=== PATIENT | male | born 1945 | race Hispanic/Latino ===

== ENCOUNTER 2017-08-30 13:03 | Emergency (ER) | payer MEDICARE ==
[~2017-08-30] VITALS: Ht 167.6 cm; Wt 79.4 kg
[~2017-08-30 13:03] MED LIST: GLUCOSAMINE &1 EAC1 PO; IBUPROFEN400 MG PO; LISINOPRIL10 MG PO; OMEPRAZOLE40 MG PO; PRAVASTATIN SOD40 MG PO
[2017-08-30] MEDS ORDERED: ACETAMINOPHEN 325 MG TAB PO ONE (13:30)
--- NOTE | 2017-08-30 14:10 | Diagnostic Imaging Report ---
Two view chest x-ray INDICATION: Fever COMPARISON: None. FINDINGS: The lateral image is motion degraded. The cardiomediastinal silhouette is normal. There is no evidence of hilar lymphadenopathy. The pulmonary vascular markings are normal. Patchy right basilar airspace opacities could be due to atelectasis or infiltrate. No pleural effusion or pneumothorax.. Evaluation of the osseous structures demonstrates degenerative changes of the spine. No focal osseous lesions. IMPRESSION: Mild bibasilar atelectasis. Small infiltrates cannot be excluded. Signed by: Dr. Ashley Rogel MD on 08/30/2017 2:07 PM
== END 2017-08-30 14:27 | disposition home or self-care (01) ==
LOC: ER 13:03
DX: J09.X2 Influenza due to identified novel influenza A virus with other respiratory manifestations (principal); I10 Essential (primary) hypertension
CPT/HCPCS: 71020; 87400; 99284

== ENCOUNTER → 2017-11-09 | Outpatient (CLI) | payer OTHER ==
--- NOTE | 2017-11-09 08:39 | Diagnostic Imaging Report ---
PROCEDURE: X-RAY CHEST, TWO VIEWS COMPARISON: None. INDICATIONS: DYSPHAGIA FINDINGS: LUNGS: No consolidations or edema. PLEURA: No effusions or pneumothorax. HEART \T\ MEDIASTINUM: The heart is within normal size-limits. BONES \T\ SOFT TISSUES: No acute findings. CONCLUSION: No acute thoracic abnormality. Gaurav Deshpande D.O. Dictated by: Gaurav Deshpande D.O. on 11/09/2017 at 8:39 Electronically approved by: Gaurav Deshpande D.O. on 11/09/2017 at 8:39
--- NOTE | 2017-11-09 09:35 | Diagnostic Imaging Report ---
PROCEDURE:X-RAY UPPER GI SERIES WITH AIR CONTRAST COMPARISON:[facility] dated 07/18/2016 INDICATIONS:GERD FINDINGS:The patient was given air crystals, thick barium, and thin barium to drink in upright and prone positions. Multiple images of the esophagus, stomach and duodenum were obtained. The esophagus is normal in appearance without evidence of dysmotility, mucosal irregularity or stricture. There is a small hiatal hernia with reflux. Focal thickened folds along the greater curvature of the stomach are noted. Review of prior study shows this to be a new finding. Endoscopy is recommended. No extrinsic abnormality. There is no evidence of ulcer. Fluoroscopy time: 2.2 minutes. Total dose: 40.55 mGy CONCLUSION: 1. Small sliding hiatal hernia with gastroesophageal reflux. 2. Interval development of thickened folds along the greater curvature of the stomach. Gaurav Deshpande D.O. Dictated by: Gaurav Deshpande D.O. on 11/09/2017 at 9:34 Electronically approved by: Gaurav Deshpande D.O. on 11/09/2017 at 9:34
== END ==
LOC: DX 07:40
PROVIDERS: ATTEND Family Medicine
DX: R13.10 Dysphagia, unspecified (principal); K21.9 Gastro-esophageal reflux disease without esophagitis
CPT/HCPCS: 71046; 74246

== ENCOUNTER 2018-04-04 09:25 | Inpatient (IN) | payer MEDICARE, OTHER ==
[~2018-04-04] VITALS: Ht 167.6 cm; Wt 84.6 kg
[2018-04-04 09:59] LABS: BASOPHILS % 0.4 % (0.0-1.0); EOSINOPHILS # (AUTO) 0.2 (0.0-0.4); EOSINOPHILS % 2.6 % (0.0-6.0); HEMATOCRIT 39.9 % (38.2-49.6); HEMOGLOBIN 13.4 g/dL (14.0-18.0); LYMPHOCYTES # (AUTO) 1.5 (1.0-3.2); LYMPHOCYTES % 21.4 % (18.0-39.1); MEAN CORPUSCULAR HEMOGLOBIN 31.2 pg (28-32); MEAN CORPUSCULAR HGB CONC 33.6 g/dL (31-35); MONOCYTES # (AUTO) 0.8 (0.2-0.8); MONOCYTES % 11.5 % (4.4-11.3); NEUTROPHILS # (AUTO) 4.4 (2.1-6.9); NEUTROPHILS % 63.7 % (38.7-80.0); PLATELET COUNT 286 x10e3/uL (140-360); RED BLOOD COUNT 4.29 x10e6/uL (4.3-5.7); RED CELL DISTRIBUTION WIDTH 13.4 % (11.7-14.4)
[2018-04-04 10:26] LABS: ALANINE AMINOTRANSFERASE 15 IU/L (0-55); ALBUMIN 3.2 g/dL (3.5-5.0); ALBUMIN/GLOBULIN RATIO 0.9 (0.8-2.0); ALKALINE PHOSPHATASE 40 IU/L (40-150); BLOOD UREA NITROGEN 17 mg/dL (7-26); BUN/CREATININE RATIO 16 (6-25); CALCIUM 9.1 mg/dL (8.4-10.2); CARBON DIOXIDE 24 mmol/L (22-29); CHLORIDE 105 mmol/L (98-107); CREATININE, SERUM 1.05 mg/dL (0.72-1.25); EST GLOMERULAR FILTRATION RATE > 60 ML/MIN (60-); GLUCOSE 98 mg/dL (74-118); SODIUM 136 mmol/L (136-145)
--- NOTE | 2018-04-04 11:03 | Diagnostic Imaging Report ---
Foot complete CPT code: 64977 Indication: Foot infection, top of foot Technique: Portable A.P., oblique and lateral views of the left foot obtained. Comparison: None Findings: Calcaneus is intact with no significant spurring. The midfoot is intact. No evidence of acute displaced fracture or dislocation involving any of the digits. There is cortical thickening of the metaphysis of the second metatarsal suggestive of remote fracture. Hallux valgus is present with the hallux valgus angle of approximately 59 degrees. No periosteal new bone formation. No air or radiopaque foreign bodies in the soft tissues. IMPRESSION: No radiographic evidence of osteomyelitis. Significant hallux valgus. Signed by: Dr. Ashley Rogel MD on 04/04/2018 11:00 AM
[2018-04-04] MEDS ORDERED: HYDROCODONE/APAP 5MG-325MG TAB PO ONE (11:15)
--- NOTE | 2018-04-04 11:39 | Diagnostic Imaging Report ---
CT Lower extremity left with contrast, with reconstructions. CPT code: 19130, 34736 Indications: Progressive swelling, top of foot. Technique: Contiguous 2.5 mm thickness axial images were obtained through the left foot after the intravenous administration of 100 cc of nonionic contrast. Rationale for reconstructions: Coronal and sagittal reconstructions were generated to better facilitate assessment of alignment and extent of fracture lines. RADIATION DOSE: Total DLP: 117.14 mGy*cm Estimated effective dose: (DLP x 0.015 x size factor) mSv CTDIvol has been reviewed. It is below the limits set by the Radiation Protocol Committee (RPC). Comparison: Foot x-rays 0947 hours. Findings: There is diffuse soft tissue swelling of the lateral aspect of the foot and ankle extending to the dorsum of the foot. No loculated fluid collections. No air in the soft tissues. The vascular structures and muscle bundles are normal in morphology. Vascular structures are widely patent. There are a few atherosclerotic calcifications in the arterial structures. Bones: Severe hallux valgus. Claw toe deformities of digits 2 through 5. Cortical thickening of the second metatarsal is suggestive of a healed stress fracture. No acute fractures. Tiny plantar calcaneal spur. There are mild degenerative changes of the subtalar joint and tibiotalar joint. IMPRESSION: 1. Diffuse soft tissue swelling of the dorsum of the foot extending to the ankle without evidence of abscess. 2. Hallux valgus. 3. Healed stress fracture of the second metatarsal. Thank you for this referral. Signed by: Dr. Ashley Rogel MD on 04/04/2018 11:36 AM
[2018-04-04] MEDS ORDERED: MORPHINE SULFATE 2 MG/ML SYR IV PRN (12:00)
[2018-04-04] MEDS ORDERED: ONDANSETRON HCL INJ 2 MG/ML VIAL IV PRN (12:00)
[2018-04-04] MEDS: VANCOMYCIN 1GM/NS 250 ML 250 ML IV SCH ×2 (13:20→20:46)
--- NOTE | 2018-04-04 15:15 | History and Physical ---
Covering for Dr. Trip Rodrigues for today, April 04, 2018. Starting tomorrow, cross-coverage will be initiated by Dr. Bal Saeed for Medicine. CHIEF COMPLAINT: Left foot pain and swelling. HISTORY OF PRESENT ILLNESS: Mr. Lemons is a 73-year-old man with a reported history of dyslipidemia, who presents to [facility] for a complaint of left foot pain onset 3 days ago, worsening gradually with erythema and swelling. He denies any other associated complaints, denies any fevers, denies trauma. He initially thought this was related to some ill shoe-fitting. However, due to worsening symptoms and exam, he decided to proceed to further evaluation in the emergency department. He denies any chest pain or shortness of breath. Denies any palpitations, syncope or other complaints. REVIEW OF SYSTEMS: A 12-system review is negative except for as noted above. ALLERGIES: NO KNOWN DRUG ALLERGIES. PAST MEDICAL HISTORY: Significant for dyslipidemia. PAST SURGICAL HISTORY: Significant for inguinal hernia repair, as well as blepharoplasty in the past. SOCIAL HISTORY: No smoking, alcohol or drugs. FAMILY HISTORY: Noncontributory. PHYSICAL EXAMINATION VITAL SIGNS: Temperature 97.4, heart rate 72, respiratory rate 20, blood pressure 153/72, O2 sat 100% on room air. GENERAL: No acute distress. Alert, active. NECK: No JVD. CHEST: Clear to auscultation. CARDIOVASCULAR: Regular rate and rhythm. Normal S1 and S2. No S3, no S4. No murmurs or rubs. ABDOMEN: Soft, nontender, nondistended. EXTREMITIES: No edema. Has 2+ bounding pulses to bilateral feet and 1+ posterior tibial bilaterally. He has erythema and swelling with an indurated area in the left anterior mid forefoot. However, no fluctuation or drainage observed. STUDIES: White blood cells 6.8, hemoglobin 13.4, platelets 286. Sodium 136, potassium 4, chloride 105, bicarbonate 24, BUN 17, creatinine 1.05, glucose 98. Lactic acid within normal value range for lab reference, 5.7. Calcium 9.1. Total bilirubin 0.8, AST 15, ALT 15, alk phos 40. Total protein 6.6, albumin 3.2. Blood cultures ordered and pending. CT lower extremity with diffuse soft-tissue swelling of dorsum of foot extending to the ankle without evidence of abscess, hallux valgus and healed stress fracture of 2nd metatarsal. Foot x-ray shows no radiographic evidence of osteomyelitis, significant hallux valgus observed. ASSESSMENT 1. Left forefoot cellulitis. 2. Dyslipidemia. RECOMMENDATIONS 1. Continue vancomycin. 2. Admit. 3. Initiate Lovenox for prophylaxis, Pepcid for prophylaxis. 4. Consult ID. 5. Wait for blood culture results. Job#: [id number] EV
[2018-04-04 17:01] VITALS: BP 130/54
[2018-04-04 17:03] VITALS: BP 130/54
[2018-04-04 17:04] VITALS: BP 130/54
[2018-04-04] MEDS: FAMOTIDINE 20 MG TAB PO SCH (17:26)
[2018-04-04] MEDS: ENOXAPARIN SOD INJ 40 MG/0.4 ML SYR SC SCH (17:26)
--- NOTE | 2018-04-04 17:38 | Consultation ---
DATE OF CONSULTATION: April 04, 2018 INFECTIOUS DISEASE CONSULTATION REASON FOR CONSULTATION: Infection of the foot. HISTORY OF PRESENT ILLNESS: The patient, who is a 73-year-old gentleman, denies any history of trauma, comes in with redness and swelling of the dorsal aspect of his foot. The patient denies any fever or chills, but the foot is painful. Denies a specific trauma. PAST MEDICAL HISTORY: Hypertension hyperlipidemia. SURGICAL HISTORY: Denies. ALLERGIES: NKA. SOCIAL HISTORY: There is no smoking, drug abuse, alcohol abuse. FAMILY HISTORY: Unremarkable. REVIEW OF SYSTEMS: HEENT: Negative. PULMONARY: Negative. CARDIAC: Negative. : Negative. SKIN: There is no rash. He had a CT of the foot, showed diffuse swelling of the dorsum of the foot extending to the ankle without abscess, healed stress fracture 2nd metatarsal. PHYSICAL EXAMINATION: GENERAL: He is currently alert, oriented, does not seem to be in acute distress. VITALS: Stable. Currently afebrile. HEENT: He does not appear icteric. NECK: Supple. CHEST: Clear. HEART: S1, S2. No S3, no S4, no murmur. ABDOMEN: Soft. Bowel sounds present. No tenderness. THE FOOT: There is erythema, edema, induration on the dorsal aspect. IMPRESSION: 1. Left foot cellulitis. Perhaps early abscess. The CAT scan does not reveal it. Will put him on vancomycin. Reassess in the morning. 2. Hypertension. Will follow. Job#: [id number] EV
[2018-04-04] MEDS: HYDROCODONE/APAP 5MG-325MG TAB PO PRN (18:15)
[2018-04-04] MEDS ORDERED: IOPAMIDOL 370 MG/ML 200 ML INFUS..BTL INJ ONE (18:38)
[2018-04-04] MEDS ORDERED: SODIUM CHLORIDE 0.9% 50ML 50 ML ONE (18:38)
[2018-04-04 20:00] VITALS: BP 148/62
[2018-04-04] MEDS ORDERED: SODIUM CHLORIDE 0.9% 250ML 250 ML ONE (20:29)
[2018-04-05] VITALS (9 sets, daily range): BP systolic 129–153; BP diastolic 66–77
[2018-04-05] MEDS: HYDROCODONE/APAP 5MG-325MG TAB PO PRN ×2 (07:32→20:44)
[2018-04-05] MEDS: FAMOTIDINE 20 MG TAB PO SCH ×2 (09:44→16:53)
[2018-04-05] MEDS: VANCOMYCIN 1GM/NS 250 ML 250 ML IV SCH ×2 (09:44→21:30)
[2018-04-05] MEDS ORDERED: MORPHINE SULFATE INJ 4 MG/ML INJ IV PRN (12:30)
[2018-04-05] MEDS: LISINOPRIL 10 MG TAB PO SCH (12:42)
[2018-04-05] MEDS: ENOXAPARIN SOD INJ 40 MG/0.4 ML SYR SC SCH (16:53)
--- NOTE | 2018-04-05 20:17 | Progress Note ---
DATE: April 05, 2018 He is still having redness and swelling of his foot. OBJECTIVE GENERAL: Alert, oriented, does not seem to be in any acute distress. VITAL SIGNS: Stable, currently afebrile. HEENT: Not icteric. NECK: Supple. CHEST: Clear bilaterally. HEART: EXTREMITIES: Foot still with erythema and edema. IMPRESSION: Cellulitis of the foot, remains. Bacteremia and gram-positive cocci. RECOMMENDATIONS: Continue with antibiotics for now and reassess in the morning. Job#: [id number]
--- NOTE | 2018-04-05 22:51 | Progress Note ---
DATE: April 05, 2018 Mr. Darrell Lemons continues to do well, however, the foot still has redness and swelling and edema. The CT scan did not show an abscess. I am concerned about the slow progress. He may need to be on IV antibiotic for a while. I will reassess in the morning this redness and induration. We may have to do IV antibiotic and a PICC line. Also, he has been having a positive blood culture with gram-positive cocci. Will await identification. Further recommendation depending on the blood culture identification. Job#: [id number]
--- NOTE | 2018-04-05 23:20 | Progress Note ---
DATE: April 05, 2018 INTERNAL MEDICINE PROGRESS NOTE This is coverage for Dr. Trip Rodrigues. SUBJECTIVE: Mr. Lemons was getting better. Left lower extremity venous ultrasound with no evidence of DVT in the left leg. 98% oxygen saturation. Room air FiO2. Blood culture was called back positive so far despite the cellulitis getting better. REVIEW OF SYSTEMS: No headaches, no bleeding. OBJECTIVE: VITAL SIGNS: Afebrile, vital signs noted per electronic record. GENERAL: In no acute distress, alert and calm. HEENT: Normocephalic, atraumatic. NECK: Supple. Throat midline. LUNGS: Bilateral air entry, clear. CARDIOVASCULAR: S1, S2. No murmurs, rubs, or gallops. ABDOMEN: Soft, nontender. EXTREMITIES: No clubbing, no cyanosis, there is no edema. INTEGUMENT: No rash. There erythematic at left dorsal aspect of foot. Much decreased from yesterday per delineating borders. LABS: Yesterday's white count was 6.8. IMPRESSION AND PLAN: 1. Left foot cellulitis, improving. 2. Gram-positive cocci septicemia. 3. Hyperlipidemia. 4. Hypertension. Follow up blood cultures. Continue the vancomycin for now. Infectious disease was consulted and we appreciate their intervention. Restart the lisinopril. Will follow along closely. Deep venous thrombosis prophylaxis is indicated and will be continued with Lovenox. Job#: [id number]
[2018-04-06] VITALS (8 sets, daily range): BP systolic 121–146; BP diastolic 62–70
[2018-04-06] MEDS: LISINOPRIL 10 MG TAB PO SCH (09:25)
[2018-04-06] MEDS: FAMOTIDINE 20 MG TAB PO SCH ×2 (09:25→16:38)
[2018-04-06] MEDS: VANCOMYCIN 1GM/NS 250 ML 250 ML IV SCH ×2 (09:25→20:30)
[2018-04-06] MEDS: CEFEPIME HCL 1 GM VIAL IV SCH (13:45)
[2018-04-06] MEDS: ENOXAPARIN SOD INJ 40 MG/0.4 ML SYR SC SCH (16:38)
--- NOTE | 2018-04-06 17:35 | Diagnostic Imaging Report ---
PROCEDURE: A single AP view of the chest. COMPARISON: [facility], DX, CHEST 2 VIEWS, 11/09/2017, 7:55. INDICATIONS: LINE PLACEMENT FINDINGS: See impression. IMPRESSION: 1. interval placement of right-sided PICC line, which has its distal tip projecting in the proximal to mid SVC. 2. Lungs are grossly clear. Cardiomediastinal silhouette is unremarkable. Darrell Gonzalez M.D. Dictated by: Darrell Gonzalez M.D. on 04/06/2018 at 17:40 Electronically approved by: Darrell Gonzalez M.D. on 04/06/2018 at 17:40
[2018-04-07] VITALS (8 sets, daily range): BP systolic 99–157; BP diastolic 71–82
[2018-04-07] MEDS: CEFEPIME HCL 1 GM VIAL IV SCH ×3 (01:16→23:52)
--- NOTE | 2018-04-07 02:00 | Progress Note ---
DATE: April 06, 2018 INTERNAL MEDICINE PROGRESS NOTE This is coverage for Dr. Trip Rodrigues. SUBJECTIVE: Mr. Lemons was seen and examined at bedside. He continues to have steady progress. Foot remains about stable. Still with a local area that is still very angry and red, but overall receding area of involvement from the severe cellulitis. REVIEW OF SYSTEMS: No bleeding, no rash. OBJECTIVE: VITAL SIGNS: Afebrile, vital signs noted per electronic record. GENERAL: No acute distress, alert and calm. HEENT: Normocephalic, atraumatic. Throat midline. NECK: Supple. LUNGS: Bilateral air entry, few rare rales, mostly clear. CARDIOVASCULAR: S1, S2. No murmurs, rubs or gallops. ABDOMEN: Soft, nontender. EXTREMITIES: No clubbing, no cyanosis. There is no edema. INTEGUMENT: No rash. No purpura. There is a very focal area on dorsal aspect of foot that is still very red and warm, but with no definite abscess arising at this time. IMPRESSION: 1. Severe cellulitis, foot. 2. Gram-positive cocci bacteremia. 3. Hyperlipidemia. 4. Hypertension. PLAN: Continue current treatment at this time. The patient will maintain on antibiotics. ID is arranging for PICC line. Outpatient antibiotic is being recommended for severe infection. Continue local care at this time. DVT prophylaxis will be ongoing given the high DVT risk that is present here. Job#: [id number] LULA
[2018-04-07 05:45] LABS: BASOPHILS % 0.6 % (0.0-1.0); EOSINOPHILS # (AUTO) 0.2 (0.0-0.4); EOSINOPHILS % 4.6 % (0.0-6.0); HEMATOCRIT 37.7 % (38.2-49.6); HEMOGLOBIN 12.7 g/dL (14.0-18.0); LYMPHOCYTES # (AUTO) 1.3 (1.0-3.2); LYMPHOCYTES % 24.1 % (18.0-39.1); MEAN CORPUSCULAR HEMOGLOBIN 30.8 pg (28-32); MEAN CORPUSCULAR HGB CONC 33.7 g/dL (31-35); MEAN CORPUSCULAR VOLUME 91.5 fL (81-99); MONOCYTES # (AUTO) 0.7 (0.2-0.8); MONOCYTES % 12.5 % (4.4-11.3); PLATELET COUNT 305 x10e3/uL (140-360); RED BLOOD COUNT 4.12 x10e6/uL (4.3-5.7); RED CELL DISTRIBUTION WIDTH 12.9 % (11.7-14.4)
[2018-04-07 06:14] LABS: BLOOD UREA NITROGEN 15 mg/dL (7-26); BUN/CREATININE RATIO 15 (6-25); CARBON DIOXIDE 26 mmol/L (22-29); CHLORIDE 105 mmol/L (98-107); CREATININE, SERUM 1.02 mg/dL (0.72-1.25); EST GLOMERULAR FILTRATION RATE > 60 ML/MIN (60-); GLUCOSE 98 mg/dL (74-118); MAGNESIUM 1.8 MG/DL (1.3-2.1); SODIUM 138 mmol/L (136-145)
[2018-04-07] MEDS: FAMOTIDINE 20 MG TAB PO SCH ×2 (08:10→16:35)
[2018-04-07] MEDS: VANCOMYCIN 1GM/NS 250 ML 250 ML IV SCH ×2 (09:13→21:30)
[2018-04-07] MEDS: LISINOPRIL 10 MG TAB PO SCH (09:14)
[2018-04-07] MEDS: ENOXAPARIN SOD INJ 40 MG/0.4 ML SYR SC SCH (16:35)
[2018-04-08] VITALS (9 sets, daily range): BP systolic 119–157; BP diastolic 62–70
--- NOTE | 2018-04-08 02:52 | Progress Note ---
DATE: April 07, 2018 INTERNAL MEDICINE PROGRESS NOTE This is coverage for Dr. Trip Rodrigues. SUBJECTIVE: Mr. Lemons was seen and examined at bedside. He continues with slow progress. The redness is continued to improve on his foot. Three voids at least spontaneously and 2 bowel movements. 99% oxygen saturation. Room air FiO2. Blood culture, no growth to date now times 24 hours. REVIEW OF SYSTEMS: No headaches, no diarrhea. OBJECTIVE: VITAL SIGNS: Afebrile, vital signs noted per electronic record. GENERAL: In no acute distress, alert and calm. HEENT: Normocephalic, atraumatic. NECK: Supple. Throat midline. LUNGS: Bilateral air entry, clear. CARDIOVASCULAR: S1, S2. No murmurs, rubs, or gallops. ABDOMEN: Soft, nontender. EXTREMITIES: No clubbing, no cyanosis, there is no edema. INTEGUMENT: No rash, no purpura. There is still the area of warmth and redness still on that left foot dorsal aspect. LABS: 4.0 potassium, 1.0 creatinine. 5 white count, 38 hematocrit. IMPRESSION AND PLAN: 1. Left foot cellulitis, improving. 2. Gram-positive cocci septicemia. 3. Hyperlipidemia. 4. Hypertension. Continue to follow blood culture and ensure negativity. Peripherally inserted central catheter line was placed successfully yesterday. Continue peripherally inserted central catheter care. Still trying to arrange for outpatient antibiotics which will include at least vancomycin. Continue to mobilize him. Continue additional blood pressure medicines. Job#: [id number]
[2018-04-08] MEDS: FAMOTIDINE 20 MG TAB PO SCH ×2 (07:45→16:40)
[2018-04-08] MEDS: VANCOMYCIN 1GM/NS 250 ML 250 ML IV SCH ×2 (08:47→21:49)
[2018-04-08] MEDS: LISINOPRIL 10 MG TAB PO SCH (08:48)
[2018-04-08] MEDS: CEFEPIME HCL 1 GM VIAL IV SCH (12:46)
[2018-04-08] MEDS: ENOXAPARIN SOD INJ 40 MG/0.4 ML SYR SC SCH (16:40)
[2018-04-09] VITALS (7 sets, daily range): BP systolic 128–155; BP diastolic 60–75
--- NOTE | 2018-04-09 00:58 | Progress Note ---
DATE: April 08, 2018 INTERNAL MEDICINE PROGRESS NOTE SUBJECTIVE: Mr. Lemons was seen and examined at bedside. He continues to have steady progress. The leg is less inflamed. 96% oxygen saturation. Room air FiO2. He is able to walk with little more steady gait. He had 2 bowel movements yesterday. REVIEW OF SYSTEMS: No diarrhea, no rash. OBJECTIVE VITAL SIGNS: Afebrile, vital signs noted per electronic record. GENERAL: In no acute distress, alert and calm. Better energy. HEENT: Normocephalic, atraumatic. Throat midline. NECK: Supple. LUNGS: Bilateral air entry, clear. CARDIOVASCULAR: S1, S2. No murmurs, rubs, or gallops. ABDOMEN: Soft, nontender. EXTREMITIES: No clubbing, no cyanosis. There is no edema. Decreasing erythematous site at left foot dorsal aspect. IMPRESSION 1. Staphylococcal bacteremia. 2. Severe left foot infection, improved. 3. Hypertension. 4. Hyperlipidemia. PLAN: Continue cefepime. Continue vancomycin. PICC line care will be continued. Will continue to await arrangement of outpatient home antibiotics. Follow up closely. DVT prophylaxis will be continued for now. Job#: [id number] LULA
[2018-04-09] MEDS: CEFEPIME HCL 1 GM VIAL IV SCH ×2 (01:24→13:00)
[2018-04-09] MEDS: FAMOTIDINE 20 MG TAB PO SCH ×2 (08:02→17:12)
[2018-04-09] MEDS: LISINOPRIL 10 MG TAB PO SCH (09:36)
[2018-04-09] MEDS: VANCOMYCIN 1GM/NS 250 ML 250 ML IV SCH ×2 (10:00→20:32)
[2018-04-09] MEDS: ENOXAPARIN SOD INJ 40 MG/0.4 ML SYR SC SCH (17:12)
--- NOTE | 2018-04-10 04:44 | Discharge Summary ---
PRIMARY DIAGNOSES 1. Left foot cellulitis. 2. Gram-positive cocci/staphylococcal septicemia. PRIMARY CARE DOCTOR: Dr. Johnathon Gutierres. HOSPITAL DOCTOR: Dr. Trip Rodrigues. HOSPITAL COURSE: Mr. Lemons was seen and examined at bedside. Significant left foot cellulitis. As he was given antibiotics while he was inpatient, cultures came back on the blood positive for staphylococcus. He improved significantly. He was allowed for PICC line placement and outpatient antibiotics and subsequently discharged when insurance authorization was approved. DIET: Low-sodium diet. FOLLOWUP: With Dr. Gutierres as well as Dr. Morgan of infectious disease. ACTIVITY AT DISCHARGE: As tolerated. MEDICATIONS AT DISCHARGE: See medication administration record for detail. IV vancomycin was being prepared. Greater than 30 minutes in direct care and coordination on day of discharge. SKYLAR NICHOLSON MD Job#: [id number]
== END 2018-04-09 22:30 | disposition home or self-care (01) | DRG 872 ==
LOC: ER 09:25 → ERHOLD 11:54 → MED/SURG3 22:49
PROVIDERS: ADMIT Internal Medicine; ATTEND Internal Medicine
PROC: 02HV33Z Insertion of Infusion Device into Superior Vena Cava, Percutaneous Approach (ICD-10-PCS; principal; 2018-04-06)
DX: A41.1 Sepsis due to other specified staphylococcus (principal); L03.116 Cellulitis of left lower limb; E78.5 Hyperlipidemia, unspecified; B95.8 Unspecified staphylococcus as the cause of diseases classified elsewhere; B96.89 Other specified bacterial agents as the cause of diseases classified elsewhere
CPT/HCPCS: 36415; 36569; 71045; 80048; 80053; 80202; 82948; 83605; 83735; 85025; 87040; 87071; 87186; 87205; 93971; 99284; J0692; J1650; J3370; J7050; Q9967

== ENCOUNTER → 2018-07-15 | Day surgery (SDC) | payer MEDICARE, OTHER ==
[~2018-07-15] MED LIST changes: +FENTANYL CITRATE/PF 100MCG/2 ML INJ ONE; +MIDAZOLAM HCL 2 MG/2 ML VIAL ONE; +PROPOFOL IV EMULSION 10 MG/ML 50 ML VIAL ONE
[2018-07-15 09:50] VITALS: BP 125/67
== END | disposition home or self-care (01) ==
LOC: OR 06:21
PROVIDERS: ATTEND Internal Medicine Gastroenterology
DX: Z12.11 Encounter for screening for malignant neoplasm of colon (principal); K57.30 Diverticulosis of large intestine without perforation or abscess without bleeding; K64.8 Other hemorrhoids; Z71.3 Dietary counseling and surveillance; I10 Essential (primary) hypertension; E66.3 Overweight; Z68.28 Body mass index [BMI] 28.0-28.9, adult
CPT/HCPCS: 93005; G0121; J2250; 45378

== ENCOUNTER → 2019-02-04 | Outpatient (CLI) | payer MEDICARE, OTHER ==
[~2019-02-04] MED LIST changes: -FENTANYL CITRATE/PF 100MCG/2 ML INJ ONE; -MIDAZOLAM HCL 2 MG/2 ML VIAL ONE; -PROPOFOL IV EMULSION 10 MG/ML 50 ML VIAL ONE
--- NOTE | 2019-02-04 11:26 | Diagnostic Imaging Report ---
Renal ultrasound. History: Polycystic kidney disease Discussion: Transverse and longitudinal images of the kidneys were obtained demonstrating normal renal sizes and echogenicities. There is no evidence of hydronephrosis, mass or renal calculus. The right kidney measures 12.8 x 5.8 x 6.0 cm and the left kidney measures 11.2 x 4.9 x 4.7 cm. Maximal cortical thickness on the right is 2.1 cm and on the left 1.5 cm. Multiple cysts are seen in both kidneys. Largest on the right noted in the medial midportion measuring 2.1 x 1.6 x 2.0 cm, peripelvic cyst measuring 2.1 x 1.5 x 1.5 cm and lateral cyst measuring 1.7 x 1.6 x 1.6 cm. There are two cysts present in the left kidney within the lower pole measuring 1.6 x 1.4 and 1.7 x 1.4 cm. The urinary bladder is unremarkable with bilateral urinary jets noted. There is no evidence of free fluid. IMPRESSION: Bilateral renal cysts. Signed by: Dr. Gaurav Deshpande DO on 02/04/2019 11:23 AM
== END ==
LOC: US 08:00
PROVIDERS: ATTEND Family Medicine
DX: Q61.3 Polycystic kidney, unspecified (principal)
CPT/HCPCS: 76770

== ENCOUNTER → 2019-04-07 | Outpatient (CLI) | payer MEDICARE, OTHER ==
--- NOTE | 2019-04-07 14:43 | Diagnostic Imaging Report ---
EXAM: Renal Ultrasound INDICATION: ^[id number] ^1321 ^CHRONIC KIDNEY DZ,STAGE III COMPARISON: Renal ultrasound of 02/04/2019 TECHNIQUE: Transverse and longitudinal images of the kidneys and bladder were obtained. FINDINGS: Right Kidney: Length: 11.6 cm Appearance: Normal echogenicity. Collecting system: No hydronephrosis Stones: None Cyst/Mass: Redemonstration of multiple right renal anechoic cysts, the largest of which measure 1.6 x 1.5 x 1.7 cm and 1.8 x 1.3 x 2.0 cm. Left Kidney: Length: 11.4 cm Appearance: Normal echogenicity. Collecting system: No hydronephrosis Stones: None Cyst/Mass: None Bladder: No mass or calculi. Prevoid estimated volume of 37.5 cc. Bilateral ureteral jets seen. Postvoid volume estimate of 9.8 cc. IMPRESSION: No renal calculi or hydronephrosis. Renal cysts as above. Signed by: Blayne Navarro MD on 04/07/2019 2:40 PM
== END ==
LOC: US 12:20
PROVIDERS: ATTEND Internal Medicine Nephrology
DX: N18.3 Chronic kidney disease, stage 3 (moderate) (principal); Q61.2 Polycystic kidney, adult type
CPT/HCPCS: 76770; 76857

== ENCOUNTER → 2019-08-17 | Outpatient (CLI) | payer MEDICARE, OTHER ==
--- NOTE | 2019-08-17 11:46 | Diagnostic Imaging Report ---
Right knee, 3 views. History: Right knee pain. Findings: The soft tissues are normal. Bone mineralization is normal. There is no evidence of fracture or dislocation. There are no lytic or sclerotic lesions. There is moderate medial joint space area and osteophytosis. Posterior patellar osteophyte is also noted. IMPRESSION: Moderate right knee DJD. Signed by: Frank Queen on 08/17/2019 11:43 AM
== END ==
LOC: RAD 11:02
PROVIDERS: ATTEND Family Medicine
DX: M25.561 Pain in right knee (principal)

== ENCOUNTER 2020-03-18 06:54 | Emergency (ER) | payer MEDICARE, OTHER ==
[~2020-03-18] VITALS: Ht 167.6 cm; Wt 84.4 kg
[2020-03-18] MEDS ORDERED: ASPIRIN 81 MG CHEW TAB PO ONE (07:45)
--- NOTE | 2020-03-18 08:05 | NUR ---
Pt reports to this RN that he has been coughing for a few days and is coughing up white/osman thick sputum. Noted wheezing inspiratory/expiratory bilaterally. Pt reports nausea and some abdominal pain. No diarrhea. Denies fever, some shaking. Pt [place] speaking only. Pt initially relayed to triage his symptoms were d/t meat stuck in chest, language barrier. 12 lead ekg performed
[2020-03-18 08:09] LABS: BASOPHILS # (AUTO) 0.1 (0.0-0.1); BASOPHILS % 0.8 % (0.0-1.0); EOSINOPHILS # (AUTO) 0.3 (0.0-0.4); EOSINOPHILS % 5.2 % (0.0-6.0); HEMATOCRIT 41.1 % (38.2-49.6); HEMOGLOBIN 13.3 g/dL (14.0-18.0); LYMPHOCYTES # (AUTO) 1.7 (1.0-3.2); LYMPHOCYTES % 29.3 % (18.0-39.1); MEAN CORPUSCULAR HEMOGLOBIN 30.6 pg (28-32); MEAN CORPUSCULAR HGB CONC 32.4 g/dL (31-35); MEAN CORPUSCULAR VOLUME 94.5 fL (81-99); MONOCYTES # (AUTO) 0.8 (0.2-0.8); MONOCYTES % 12.8 % (4.4-11.3); NEUTROPHILS # (AUTO) 3.1 (2.1-6.9); NEUTROPHILS % 51.7 % (38.7-80.0); PLATELET COUNT 299 x10e3/uL (140-360); RED BLOOD COUNT 4.35 x10e6/uL (4.3-5.7); RED CELL DISTRIBUTION WIDTH 13.2 % (11.7-14.4)
[2020-03-18 08:24] LABS: INR 0.89; PROTHROMBIN TIME 12.6 seconds (11.9-14.5)
--- NOTE | 2020-03-18 08:36 | Diagnostic Imaging Report ---
EXAMINATION: CHEST SINGLE (PORTABLE) INDICATION: ERMD ORDER COMPARISON: None FINDINGS: AP view TUBES and LINES: None. LUNGS/PLEURA: Lungs are well inflated. There is no evidence of pneumonia or pulmonary edema.. Left basilar atelectasis has slightly improved. There is no pleural effusion or pneumothorax. HEART AND MEDIASTINUM: The cardiomediastinal silhouette is unremarkable. BONES AND SOFT TISSUES: No acute osseous lesion. Soft tissues are unremarkable. UPPER ABDOMEN: No free air under the diaphragm. IMPRESSION: Left basilar atelectasis has slightly improved. Signed by: Segundo Atkins MD on 03/18/2020 8:33 AM
[2020-03-18 08:41] LABS: ALBUMIN 3.6 g/dL (3.5-5.0); ALBUMIN/GLOBULIN RATIO 1.1 (0.8-2.0); ANION GAP 10.8 mmol/L (8-16); CALCIUM 8.9 mg/dL (8.4-10.2); CREATININE, SERUM 1.35 mg/dL (0.72-1.25); POTASSIUM 4.8 mmol/L (3.5-5.1)
[2020-03-18 08:47] LABS: CREATINE KINASE MB 2.2 ng/mL (0-5.0)
--- NOTE | 2020-03-18 10:18 | Emergency Department Note ---
History of Present Illnes History of Present Illness Chief Complaint: General Medicine Complaints History of Present Illness This is a 74 year old male . Chief Complaint Comment PATIENT IN FROM HOME WITH COMPLAINTS OF EATING 2 PIECES OF GARLIC LAST NIGHT, AND NO FEELS LIKE HE HAS A PIECE STUCK IN HIS CHEST. ALSO STATES THAT IT TASTES LIKE GARLIC WHEN HE BELCHES. PATIENT APPEARS IN NO DISTRESS, RESP EVEN AND NONLABORED, O2 SATS 98% ON ROOM AIR Historian: Patient Arrival Mode: Car Onset (how long ago): day(s) (2) Location: COUGH Quality: CHEST Radiation: Denies non-radiation, Denies back, Denies neck, Denies extremity, Denies abdomen, Denies periumbilical, Denies flank, Denies proximal, Denies distal, Denies other Severity: mild Onset quality: gradual Duration (how long): day(s) (2) Progression: waxing and waning Chronicity: new Context: Denies recent illness, Denies recent surgery, Denies recent immobilization, Denies recent travel, Denies trauma/injury, Denies new medications, Denies hx of DVT/PE, Denies non-compliance w/ medications, Denies other Relieving factors: none Exacerbating factors: none Associated symptoms: Reports cough; Denies denies other symptoms, Denies confusion, Denies chest pain, Denies diaphoresis, Denies fever/chills, Denies headaches, Denies loss of appetite, Denies malaise, Denies nausea/vomiting, Denies rash, Denies seizure, Denies shortness of breath, Denies syncope, Denies weakness, Denies other (DYSPHAGIA) Treatments prior to arrival: none Past Medical/Family History Physician Review I have reviewed the patient's past medical and family history. Any updates have been documented here. Past Medical History Recent Fever: No Clinical Suspicion of Infectio: No New/Unexplained Change in Ment: No Past Medical History: Hypertension, Hyperlipedemia Other Medical History: Cholesterol Other Surgery: Rt hernia repair cataract Other Last Tetanus: Unknown Review of Systems Review of Systems Constitutional: Reports no symptoms EENTM: Reports no symptoms Cardiovascular: Reports no symptoms Respiratory: Reports as per HPI, Reports cough Gastrointestinal: Reports no symptoms Genitourinary: Reports no symptoms Musculoskeletal: Reports no symptoms Integumentary: Reports no symptoms Neurological: Reports no symptoms Psychological: Reports no symptoms Endocrine: Reports no symptoms Hematological/Lymphatic: Reports no symptoms Physical Exam Related Data Allergies: Coded Allergies: No Known Allergies (Unverified , 05/25/17) Triage Vital Signs Vital Signs Date Time Temp Pulse Resp B/P (MAP) Pulse Ox O2 Delivery O2 Flow Rate FiO2 03/18/20 07:00 97.6 76 18 163/74 98 Room Air Vital signs reviewed: Yes Physical Exam CONSTITUTIONAL Constitutional: Present well-developed, Present well-nourished HENT HENT: Present normocephalic, Present atraumatic, Present oropharynx clear/moist, Present nose normal HENT L/R: Present left ext ear normal, Present right ext ear normal EYES Eyes: Reports PERRL, Reports conjunctivae normal NECK Neck: Present ROM normal PULMONARY Pulmonary: Present effort normal, Present rhonchi CARDIOVASCULAR Cardiovascular: Present regular rhythm, Present heart sounds normal, Present capillary refill normal, Present normal rate GASTROINTESTINAL Abdominal: Present soft, Present nontender, Present bowel sounds normal GENITOURINARY Genitourinary: Present exam deferred SKIN Skin: Present warm, Present dry MUSCULOSKELETAL Musculoskeletal: Present ROM normal NEUROLOGICAL Neurological: Present alert, Present oriented x 3, Present no gross motor or sensory deficits PSYCHOLOGICAL Psychological: Present mood/affect normal, Present judgement normal Results Laboratory Result Diagram: 03/18/20 0757 03/18/20 0757 Laboratory Laboratory Tests Test 03/18/20 07:57 White Blood Count 5.93 x10e3/uL (4.8-10.8) Red Blood Count 4.35 x10e6/uL (4.3-5.7) Hemoglobin 13.3 g/dL (14.0-18.0) Hematocrit 41.1 % (38.2-49.6) Mean Corpuscular Volume 94.5 fL (81-99) Mean Corpuscular Hemoglobin 30.6 pg (28-32) Mean Corpuscular Hemoglobin Concent 32.4 g/dL (31-35) Red Cell Distribution Width 13.2 % (11.7-14.4) Platelet Count 299 x10e3/uL (140-360) Neutrophils (%) (Auto) 51.7 % (38.7-80.0) Lymphocytes (%) (Auto) 29.3 % (18.0-39.1) Monocytes (%) (Auto) 12.8 % (4.4-11.3) Eosinophils (%) (Auto) 5.2 % (0.0-6.0) Basophils (%) (Auto) 0.8 % (0.0-1.0) Neutrophils # (Auto) 3.1 (2.1-6.9) Lymphocytes # (Auto) 1.7 (1.0-3.2) Monocytes # (Auto) 0.8 (0.2-0.8) Eosinophils # (Auto) 0.3 (0.0-0.4) Basophils # (Auto) 0.1 (0.0-0.1) Absolute Immature Granulocyte (auto 0.01 x10e3/uL (0-0.1) Prothrombin Time 12.6 seconds (11.9-14.5) Prothromb Time International Ratio 0.89 Sodium Level 137 mmol/L (136-145) Potassium Level 4.8 mmol/L (3.5-5.1) Chloride Level 109 mmol/L (98-107) Carbon Dioxide Level 22 mmol/L (22-29) Anion Gap 10.8 mmol/L (8-16) Blood Urea Nitrogen 18 mg/dL (7-26) Creatinine 1.35 mg/dL (0.72-1.25) Estimat Glomerular Filtration Rate 52 ML/MIN (60-) BUN/Creatinine Ratio 13 (6-25) Glucose Level 108 mg/dL (74-118) Calcium Level 8.9 mg/dL (8.4-10.2) Total Bilirubin 0.3 mg/dL (0.2-1.2) Aspartate Amino Transf (AST/SGOT) 24 IU/L (5-34) Alanine Aminotransferase (ALT/SGPT) 24 IU/L (0-55) Alkaline Phosphatase 40 IU/L (40-150) Creatine Kinase 173 IU/L (30-200) Creatine Kinase MB 2.20 ng/mL (0-5.0) Troponin I 0.003 ng/mL (0-0.300) Total Protein 6.8 g/dL (6.5-8.1) Albumin 3.6 g/dL (3.5-5.0) Globulin 3.2 g/dL (2.3-3.5) Albumin/Globulin Ratio 1.1 (0.8-2.0) Lipase 43 U/L (8-78) Lab results reviewed: Yes Imaging Imaging results reviewed: Yes Procedures 12 Lead ECG Interpretation ECG Interpretation : ECG: ECG [address]: Interpreted by ED physician Date: Mar 18, 2020 Time: 07:42 Rhythm: sinus rhythm Rate: normal BPM: 72 QRS axis: normal Conduction: 1st degree ST segments normal: Yes Assessment & Plan Medical Decision Making MDM PNEUMONIA DYSPHAGIA Reassessment Reassessment time: 10:16 Reassessment BETTER Assessment & Plan Final Impression: (1) Acute bronchitis (2) GERD (gastroesophageal reflux disease) (3) Dysphagia Depart Disposition: HOME, SELF-CARE Last Vital Signs Date Time Temp Pulse Resp B/P (MAP) Pulse Ox O2 Delivery O2 Flow Rate FiO2 03/18/20 08:05 68 14 150/77 98 03/18/20 07:00 97.6 Room Air Home Meds Reported Medications Gluc 2KCL/Chondr/Chidi Hy/Hy Ac (GLUCOSAMINE & CHONDROITIN CAP) 1 Each Capsule, PO DAILY 10/29/16 Lisinopril (LISINOPRIL) 10 Mg Tablet, 10 MG PO DAILY, #30 TAB 10/29/16 Ibuprofen (IBUPROFEN) 400 Mg Tablet, 800 MG PO Q4H, TAB 10/29/16 Medications in the ED Aspirin 81 mg PRN ONCE PO ; Start 03/18/20 at 07:45; Stop 03/18/20 at 07:46 DOMINGA FORTUNE MD Mar 18, 2020 10:18
[2020-03-18 11:15] VITALS: BP 154/73
== END 2020-03-18 11:17 | disposition home or self-care (01) ==
LOC: ER 07:19
DX: J20.9 Acute bronchitis, unspecified (principal); R05 Cough; R13.10 Dysphagia, unspecified; K21.9 Gastro-esophageal reflux disease without esophagitis; I10 Essential (primary) hypertension; E78.5 Hyperlipidemia, unspecified
CPT/HCPCS: 36415; 71045; 80053; 82550; 82553; 83690; 84484; 85025; 85610; 93005; 99284

== ENCOUNTER 2020-06-03 13:53 | Inpatient (IN) | payer MEDICARE ==
[~2020-06-03] VITALS: Ht 170.2 cm; Wt 87.1 kg
[2020-06-03] MEDS ORDERED: SODIUM CHLORIDE 0.9% 1000ML 1,000 ML IV STA (14:08)
--- OUTSIDE RECORDS SUMMARY | 2020-06-03 14:12 | XMS REPORT | Continuity of Care Document ---
Author Author [facility] t Organization [facility] Address [address] [place] [address] Phone Unavailable Care Team Providers Care Geodesist Name Role Phone BJORN SOLOMON PCP DOMINGA FORTUNE Attphys Unavailable BJORN SOLOMON Attphys Unavailable BELA SAHU Attphys Unavailable Adriano PEÑA Attphys Unavailable Mei PINON Attphys Unavailable Adriano PEÑA Admphys Unavailable Payers Payer Name Policy Type Policy Number Effective Date Expiration Date [facility] [id number] 2020 00:00:00 [facility] [id number] 2020 00:00 :00 [facility] Problems Condition Name Condition Details Condition Category Status Onset Date Resolution Date Last Treatment Date Treating Clinician Comments Source Acute bronchitis Problem Active [facility] Gastroesophageal reflux disease Problem Active [facility] Dysphagia Problem Active [facility] Allergies, Adverse Reactions, Alerts Allergy Name Allergy Type Status Severity Reaction(s) Onset Date Inacti ve Date Treating Clinician Comments Source No Known Allergies DA Active U 2020-03-22 00:00:00 [facility] No Known Allergies DA Active U 2011-03-02 00:00:00 [facility] Social History Social Habit Start Date Stop Date Quantity Comments Source Sex Assigned At 1945 00:00:00 1945 00:00:00 Male [facility] Medications Ordered Medication Name Filled Medication Name Start Date Stop Da te Current Medication? Ordering Clinician Indication Dosage Frequency Signature (SIG) Comments Components Source Gluc 2KCL/Chondr/Chidi Hy/Hy Ac (Glucosamine & Chondroi tin Cap) 1 Each CAPSULE Gluc 2KCL/Chondr/Chidi Hy/Hy Ac (Glucosamine & Chondroitin Cap) 1 Each CAPSULE Yes Daily [facility] Ibuprofen Ibuprofen Yes 800 Every 4 Hours [facility] Lisinopril Lisinopril Yes 10 Daily [facility] Pravastatin Sodium Pravastatin Sodium 2018-07-15 00:00:00 No 40 Daily [facility] Omeprazole Omeprazole 2018-04-04 00:00:00 No 40 Jolie ly [facility] Vital Signs Vital Name Observation Time Observation Value Comments Source Body Temperature 2020-03-18 11:15:00 98.0 [degF] [facility] Weight 2020-03-18 07:00:00 186 [lb_av] [facility] BMI (Body Mass Index) 2020-03-18 07:00:00 30.0 kg/m2 [facility] Procedures This patient has no known procedures. Plan of Care Planned Activity Planned Date Details Comments Source Instructions Dysphagia [facility] Instructions Bronchitis (Acute) - Adult C [facility] Encounters Start Date/Time End Date/Time Encounter Type Admission Type Att[facility] Care Department Encounter ID Source 2020-03-18 07:19:00 2020-03-18 11:17:00 Departed Emergency Room DOMINGA FORTUNE [facility] [id number] [facility] 2019-08-17 10:02:00 2019-08-17 10:02:00 Registered Clinic 3 BJORN SOLOMON [facility] [id number] [facility] 2018-04-04 11:54:00 2018-04-09 22:30:00 Discharged Inpatient 1 KIRSTEN PEÑA [facility] [id number] [facility] 2017-11-09 07:40:00 2017-11-09 07:40:00 Registered Clinic GAIL SOLOMON, [facility] [id number] [facility] 2017-08-30 13:03:00 2017-08-30 14:27:00 Departed Emergency Room ER ROSY PINON [facility] [id number] [facility] 2017-07-02 06:58:00 2017-07-02 06:58:00 [facility] [id number] [facility] 2017-06-18 07:19:00 2017-06-18 07:19:00 Registered Clinic [facility] [id number] [facility] Results Test Description Test Time Test Comments Results Result Comments Source - CT HEAD/BRAIN W/O CONT 2020-03-22 13:46:00 N gina: DARRELL BOTELLO [facility] : 1945 Age/S: 75 / M [address] [facility] Unit #: [id number] Loc: [place] [address] Phys: Brenna Banks NP Acct: [id number] Dis Date: Status: REG ER PHONE #: [phone] Exam Date: 03/22/2020 1324 FAX #: [phone] Reason: head injury EXAMS: CPT CODE: [id number] CT HEAD/BRAIN W/O CONT 81753 HISTORY: head injury TECHNIQUE: Noncontrast 2.[address] of the head. Examination acquired within 24 hours of arrival. Automated exposure control for dose reduction. COMPARISON: None FINDINGS: Tiny focus of air in the scalp near the vertex (4/64) which may be posttraumatic given the history of head injury. Calvarium and skull base are intact. No acute hemorrhage. No intracranial mass, mass effect, or midline shift. No effacement of the sulci or zambrano-white matter interface. Diffuse cortical atrophy is present. Visualized paranasal sinuses are clear. Mastoid air cells and middle ear cavities are clear. Prior lens extraction bilaterally. IMPRESSION: Findings suggest focal injury of the scalp near the vertex of the skull but no underlying bony injury or intracranial injury. Diffuse cortical atrophy. Location: [facility] at 1346 Reported and signed by: Vijay Alejandra MD CC: Brenna Banks NP Technologist:Naveen Ho RT(R),(MR),(CT) CTDI: DLP: Trnscb Date/Time: 03/22/2020 (1346) [id number] Orig Print D/T: S: 03/22/2020 (6777) PAGE 1 Signed Report CHEST SINGLE (PORTABLE) 2020-03-18 08:31:00 [place] [address] Patient Name: DARRELL BOTELLO MR #: [id number] : 1945 Age/Sex: 74/M Req #: [id number] Adm Physician: Ordered by: DOMINGA FORTUNE MD Report #: [id number] Location: ER Room/Bed: Procedure: [id number] DX/CHEST SINGLE (PORTABLE) Exam Date: 03/18/20 Exam Time: 747 REPORT STATUS: Signed EXAMINATION: CHEST SINGLE (PORTABLE) INDICATION: ERMD ORDER COMPARISON: None FINDINGS: AP view TUBES and LINES: None. LUNGS/PLEURA: Lungs are well inflated. There is no evidence of pneumonia or pulmonary edema.. Left basilar atelectasis has slightly improved. There is no pleural effusion or pneumothorax. HEART AND MEDIASTINUM: The cardiomediastinal silhouette is unremarkable. BONES AND SOFT TISSUES: No acute osseous lesion. Soft tissues are unremarkable. UPPER ABDOMEN: No free air under the diaphragm. IMPRESSION: Left basilar atelectasis has slightly improved. Signed by: Segundo Mccoy MD on 03/18/2020 8:33 AM Dictated By: SEGUNDO MCCOY MD 2 Transcribed By: URMILA on 03/18/20832 COPY TO: DOMINGA FORTUNE MD Blood leukocytes automated count (number/volume) 2020-03-18 07:57:00 Test Item White Blood Count (test code = 6690-2) 5.93 4.8-10.8 [facility] automated count (number/volume)2020-03-18 07:57:00* Test Item Value Reference Range Interpretation Comments Red Blood Count (test code = 789-8) 4.35 4.3-5.7 [facility] hemoglobin measurement (moles/volume)2020-03-18 07:57:00* Test Item Value Reference Range Interpretation Comments Hemoglobin (test code = 33859-2) 13.3 14.0-18.0 [facility] CenterAutomated blood hematocrit (volume fraction)2020-03-18 07:57:00* Test Item Value Reference Range Interpretation Comments Hematocrit (test code = 4544-3) 41.1 38.2-49.6 [facility] CenterAutomated erythrocyte mean corpuscular ijhftm2933-44-82 07:57:00* Test Item Value Reference Range Interpretation Comments Mean Corpuscular Volume (test code = 787-2) 94.5 81-99 [facility] CenterAutomated erythrocyte mean corpuscular hemoglobin (mass per erythrocyte)2020-03-18 07:57:00* Test Item Value Reference Range Interpretation Comments Mean Corpuscular Hemoglobin (test code = 785-6) 30.6 28-32 [facility] CenterAutomated erythrocyte mean corpuscular hemoglobin concentration measurement (mass/volume)2020-03-18 07:57:00* Test Item Value Reference Range Interpretation Comments Mean Corpuscular Hemoglobin Concent (test code = 786-4) 32.4 31-35 [facility] CenterRDW XbrVb-Qad4528-62-19 07:57:00* Test Item Value Reference Range Interpretation Comments Red Cell Distribution Width (test code = 09187-8) 13.2 11.7 -14.4 [facility] CenterAutomated blood platelet count (count/volume)2020-03-18 07:57:00* Test Item Value Reference Range Interpretation Comments Platelet Count (test code = 777-3) 299 140-360 [facility] CenterAutomated blood segmented neutrophil count as percentage of total gyhwajmmto3361-69-81 07:57:00* Test Item Value Reference Range Interpretation Comments Neutrophils (%) (Auto) (test code = 82806-7) 51.7 38.7-80.0 [facility] CenterAutomated blood lymphocyte count as percentage ot total rtenrafhaa3036-56-37 07:57:00* Test Item Value Reference Range Interpretation Comments Lymphocytes (%) (Auto) (test code = 736-9) 29.3 18.0-39.1 [facility] CenterAutomated blood monocyte count as percentage of total kgkncnescc5720-96-12 07:57:00* Test Item Value Reference Range Interpretation Comments Monocytes (%) (Auto) (test code = 5905-5) 12.8 4.4-11.3 [facility] CenterAutomated blood eosinophil count as percentage of total pxvzphbnox6882-91-03 07:57:00* Test Item Value Reference Range Interpretation Comments Eosinophils (%) (Auto) (test code = 713-8) 5.2 0.0-6.0 [facility] CenterAutomated blood basophil count as percentage of total topolmntkw7927-62-57 07:57:00* Test Item Value Reference Range Interpretation Comments Basophils (%) (Auto) (test code = 706-2) 0.8 0.0-1.0 [facility] CenterFluoroscopic procedure less than one hour hiuvqeoc3170-04-14 07:57:00* Test Item Value Reference Range Interpretation Comments IM GRANULOCYTES % (test code = IM GRANULOCYTES %) 0.2 0.0- 1.0 [facility] CenterAutomated blood neutrophil count 2020-03-18 07:57:00* Test Item Value Reference Range Interpretation Comments Neutrophils # (Auto) (test code = 751-8) 3.1 2.1-6.9 [facility] CenterBlood lymphocytes count (number/volume) 2020-03-18 07:57:00* Test Item Value Reference Range Interpretation Comments Lymphocytes # (Auto) (test code = 55331-2) 1.7 1.0-3.2 [facility] CenterBlood monocytes automated count (number/volume)2020-03-18 07:57:00* Test Item Value Reference Range Interpretation Comments Monocytes # (Auto) (test code = 742-7) 0.8 0.2-0.8 [facility] CenterAutomated blood eosinophil count 2020-03-18 07:57:00* Test Item Value Reference Range Interpretation Comments Eosinophils # (Auto) (test code = 711-2) 0.3 0.0-0.4 [facility] CenterAutomated blood basophil count (count/volume)2020-03-18 07:57:00* Test Item Value Reference Range Interpretation Comments Basophils # (Auto) (test code = 704-7) 0.1 0.0-0.1 [facility] CenterFluoroscopic procedure less than one hour fnqmwseg3731-90-61 07:57:00* Test Item Value Reference Range Interpretation Comments Absolute Immature Granulocyte (auto (marcella t code = Absolute Immature Granulocyte (auto) 0.01 0-0.1 [facility] CenterProthrombin time (PT) in platelet poor plasma by coagulation zxhsv7460-01-89 07:57:00* Test Item Value Reference Range Interpretation Comments Prothrombin Time (test code = 5902-2) 12.6 11.9-14.5 [facility] CenterINR in Platelet poor plasma by Coagulation qfpnq9605-62-78 07:57:00* Test Item Value Reference Range Interpretation Comments Prothromb Time International Ratio (test code = 6301-6) 0.89 Oral Anticoagulant Therapy INR Values:1. Low Intensity Therapy 1.5 - 2.02 . Moderate Intensity Therapy 2.0 - 3.03. High Intensity Therapy(1) 2.5 - 3. 54. High Intensity Therapy(2) 3.0 - 4.05. Panic Value INR > 5.0 [facility] plasma sodium measurement (moles/volume)2020-03-18 07:57:00* Test Item Value Reference Range Interpretation Comments Sodium Level (test code = 2951-2) 137 136-145 [facility]ererum or plasma potassium measurement (moles/volume)2020-03-18 07:57:00* Test Item Value Reference Range Interpretation Comments Potassium Level (test code = 2823-3) 4.8 3.5-5.1 [facility]ererum or plasma chloride measurement (moles/volume)2020-03-18 07:57:00* Test Item Value Reference Range Interpretation Comments Chloride Level (test code = 2075-0) 109 98-107 [facility] Centererum or plasma carbon dioxide, total measurement (moles/volume)2020-03-18 07:57:00* Test Item Value Reference Range Interpretation Comments Carbon Dioxide Level (test code = 2028-9) 22 22-29 [facility]ererum or plasma anion gmk3058-50-74 07:57:00* Test Item Value Reference Range Interpretation Comments Anion Gap (test code = 36170-7) 10.8 8-16 [facility]ererum or plasma urea nitrogen measurement (mass/volume)2020-03-18 07:57:00* Test Item Value Reference Range Interpretation Comments Blood Urea Nitrogen (test code = 3094-0) 18 7-26 [facility] Centererum or plasma creatinine measurement (mass/volume)2020-03-18 07:57:00* Test Item Value Reference Range Interpretation Comments Creatinine (test code = 2160-0) 1.35 0.72-1.25 [facility]ererum or plasma urea nitrogen/creatinine mass nepcf1289-56-27 07:57:00* Test Item Value Reference Range Interpretation Comments BUN/Creatinine Ratio (test code = 3097-3) 13 6-25 [facility] CenterEstimated glomerular filtration rate (GFR) mknkiomcpimro9343-87-01 07:57:00* Test Item Value Reference Range Interpretation Comments Estimat Glomerular Filtration Rate (test code = 608700006) 52 >60 Ranges were taken from the National Kidney Disease Education Program and the Public Health Service Hospitalal Kidney Foundation literature.Reference ranges:60 or greater: Ixrfxo76-09 ( for 3 consecutive months): Chronic kidney disease 15 or less: Kidney failureUnited Memorial Medical CenterGlucose omowklahjol6627-07-68 07:57:00* Test Item Value Reference Range Interpretation Comments Glucose Level (test code = RYV2254) 108 74-118 [facility]ererum or plasma calcium measurement (mass/volume)2020-03-18 07:57:00* Test Item Value Reference Range Interpretation Comments Calcium Level (test code = 31596-9) 8.9 8.4-10.2 [facility]ererum or plasma total bilirubin measurement (mass/volume)2020-03-18 07:57:00* Test Item Value Reference Range Interpretation Comments Total Bilirubin (test code = 1975-2) 0.3 0.2-1.2 [facility] CenterFluoroscopic procedure less than one hour xujlcogu1347-48-20 07:57:00* Test Item Value Reference Range Interpretation Comments Aspartate Amino Transf (AST/SGOT) (test code = Aspartate Amino Transf (AST/SGOT)) 24 5-34 [facility] Centererum or plasma alanine aminotransferase measurement (enzymatic activity/volume)2020-03-18 07:57:00* Test Item Value Reference Range Interpretation Comments Alanine Aminotransferase (ALT/SGPT) (test code = 1742-6) 24 0-55 [facility] Centererum or plasma protein measurement (mass/volume)2020-03-18 07:57:00* Test Item Value Reference Range Interpretation Comments Total Protein (test code = 2885-2) 6.8 6.5-8.1 [facility] Centererum or plasma albumin measurement (mass/volume)2020-03-18 07:57:00* Test Item Value Reference Range Interpretation Comments Albumin (test code = 1751-7) 3.6 3.5-5.0 [facility] CenterPlasma globulin measurement (mass/volume) 2020-03-18 07:57:00* Test Item Value Reference Range Interpretation Comments Globulin (test code = 20668-7) 3.2 2.3-3.5 [facility] Centererum or plasma albumin/globulin mass tdphg2458-57-46 07:57:00* Test Item Value Reference Range Interpretation Comments Albumin/Globulin Ratio (test code = 1759-0) 1.1 0.8-2.0 [facility] Centererum or plasma alkaline phosphatase measurement (enzymatic activity/volume)2020-03-18 07:57:00* Test Item Value Reference Range Interpretation Comments Alkaline Phosphatase (test code = 6768-6) 40 40-150 [facility] Centererum or plasma creatine kinase measurement (enzymatic activity/volume)2020-03-18 07:57:00* Test Item Value Reference Range Interpretation Comments Creatine Kinase (test code = 2157-6) 173 30-200 [facility] Centererum or plasma creatine kinase MB measurement (mass/volume)2020-03-18 07:57:00* Test Item Value Reference Range Interpretation Comments Creatine Kinase MB (test code = 68181-0) 2.20 0-5.0 [facility] CenterTroponin I measurement by highly sensitive enzyme eghymnzhquc7186-80-01 07:57:00* Test Item Value Reference Range Interpretation Comments Troponin I (test code = 54349-5) 0.003 0-0.300 [facility] Centererum or plasma lipase measurement (enzymatic activity/volume)2020-03-18 07:57:00* Test Item Value Reference Range Interpretation Comments Lipase (test code = 3040-3) 43 8-78 [facility] CenterKNEE RIGHT THREE MMMNL7899-69-29 11:42:00 [facility] [address] [place] [address] Patient Name: DARRELL BOTELLO MR #: [id number] : 1944 Age/Sex: 74/M Req #: [id number] Adm Physician: Ordered by: JUANITO DEE, BJORN Espinal MD Report #: [id number] Location: RAD Room/Bed: Procedure: [id number] DX/KNEE RIGHT THREE VIEWS Exam Date: 08/17/19 E xam Time: 1110 REPORT STATUS: Meaghan d Right knee, 3 views. History: Right knee pain. Findings: Th e soft tissues are normal. Bone mineralization is normal. There is no evidence of fracture or dislocation. There are no lytic or sclerotic lesions. There is moderate medial joint space area and osteophytosis. Posterior patellar osteop hyte is also noted. IMPRESSION: Moderate right knee DJD. Signed b y: Frank Queen on 08/17/2019 11:43 AM Dictated By: FRANK QUEEN MD El ectronically Signed By: FRANK QUEEN MD on 08/17/19 1143 Transcribed By: TC WREN on 08/17/19 1143 COPY TO: BJORN SOLOMON PELVIC (NON OB) SIEGEL OR F/U2606-14-31 14:36:00 [place] [address] Patient Name: DARRELL BOTELLO MR #: [id number] : 1945 Age/Sex: 74/M Req #: [id number] Adm Physician: Ordered by: BELA SAHU MD Report #: [id number] Location: Room/Bed: Procedure: [id number] US/U S PELVIC (NON OB) SIEGEL OR F/U Exam Date: 04/07/19 Exa m Time: 1321 REPORT STATUS: Signed EXAM: Renal Ultrasound INDICATION: [id number] CHRONIC K ROBEL NIX,STAGE III COMPARISON: Renal ultrasound of 02/04/2019 TECHNIQUE: Tr ansverse and longitudinal images of the kidneys and bladder were obtained. FINDINGS: Right Kidney: Length: 11.6 cm Appearance: Normal ec hogenicity. Collecting system: No hydronephrosis Stones: None Cyst/Mass: Redemonstration of multiple right renal anechoic cysts, the largest of which measure 1.6 x 1.5 x 1.7 cm and 1.8 x 1.3 x 2.0 cm. Left Kidney: Length: 11.4 cm Appearance: Normal echogenicity. Collecting system: No hydronephro sis Stones: None Cyst/Mass: None Bladder: No mass or calculi. Prevoi d estimated volume of 37.5 cc. Bilateral ureteral jets seen. Postvoid volume e stimate of 9.8 cc. IMPRESSION: No renal calculi or hydronephrosis. Renal cysts as above. Signed by: Doroteo Cole MD on 04/07/2019 2:40 PM Dicta rose By: DOROTEO COLE MD 1440 Transcribed By: URMILA on 04/07/19 1440 COPY TO: BELA SAHU MD RENAL RETROPERITONEAL [id number] 14:36:00 [place] [address] Patient Name: DARRELL BOTELLO MR #: [id number] : 1945 Age/Sex: 74/M Req #: [id number] Adm Physician: Ordered by: BELA SAHU MD Report #: [id number] Location: Room/Bed: Procedure: [id number] US/U S RENAL RETROPERITONEAL COMP Exam Date: 04/07/19 Debbie diana Time: 1321 REPORT STATUS: Signed EXAM: Renal Ultrasound INDICATION: [id number] CHRONIC K IDNEY DZ,STAGE III COMPARISON: Renal ultrasound of 02/04/2019 TECHNIQUE: Tr ansverse and longitudinal images of the kidneys and bladder were obtained. FINDINGS: Right Kidney: Length: 11.6 cm Appearance: Normal ec hogenicity. Collecting system: No hydronephrosis Stones: None Cyst/Mass: Redemonstration of multiple right renal anechoic cysts, the largest of which measure 1.6 x 1.5 x 1.7 cm and 1.8 x 1.3 x 2.0 cm. Left Kidney: Length: 11.4 cm Appearance: Normal echogenicity. Collecting system: No hydronephro sis Stones: None Cyst/Mass: None Bladder: No mass or calculi. Prevoi d estimated volume of 37.5 cc. Bilateral ureteral jets seen. Postvoid volume e stimate of 9.8 cc. IMPRESSION: No renal calculi or hydronephrosis. Renal cysts as above. Signed by: Doroteo Cole MD on 04/07/2019 2:40 PM Dicta rose By: DOROTEO COLE MD 144 Transcribed By: URMILA on 04/07/19 1440 COPY TO: BELA SAHU MD RENAL RETROPERITONEAL [id number] 11:19:00 [place] [address] Patient Name: DARRELL BOTELLO MR #: [id number] : 1945 Age/Sex: 73/M Req #: [id number] Adm Physician: Ordered by: JUANITO DEE, BJORN Espinal MD Report #: [id number] Location: US Room/Bed: Procedure: [id number] US/US RENAL RETROPERITONEAL COMP Exam Date: 02/04/19 Exam Time: 0853 REPORT STATUS : Signed Renal ultrasound. History: Polycystic kidney disease Discu ssion: Transverse and longitudinal images of the kidneys were obtained demonst rating normal renal sizes and echogenicities. There is no evidence of hydronep hrosis, mass or renal calculus. The right kidney measures 12.8 x 5.8 x 6.0 cm and the left kidney measures 11.2 x 4.9 x 4.7 cm. Maximal cortical thickne ss on the right is 2.1 cm and on the left 1.5 cm. Multiple cysts are see n in both kidneys. Largest on the right noted in the medial midportion measuri ng 2.1 x 1.6 x 2.0 cm, peripelvic cyst measuring 2.1 x 1.5 x 1.5 cm and latera l cyst measuring 1.7 x 1.6 x 1.6 cm. There are two cysts present in the left k idney within the lower pole measuring 1.6 x 1.4 and 1.7 x 1.4 cm. The uri nary bladder is unremarkable with bilateral urinary jets noted. There is no ev idence of free fluid. IMPRESSION: Bilateral renal cysts. Signed by: Dr. Gaurav Arguelles DO on 02/04/2019 11:23 AM Dictated By: GAURAV ARGUELLES DO 1123 Transcribed By : URMILA on 02/04/19 1123 COPY TO: BJORN SOLOMON Vancomycin Level Redmis0815-62-16 09:41:00* Test Item Value Reference Range Interpretation Comments Vancomycin Level Trough (test code = 4092-3) 15.3 5.0-10.0 HH Results called to Yong Segal RN at 0940 on 04/09/18 by Kimmy Tavares. RB [place].[facility] CenterBlood Yhmtbrk7225-14-64 12:17:00* Test Item Value Reference Range Interpretation Comments Blood Culture (test code = 600-7) Organism: STAPHYLOCOCCUS EPIDERMI DIS [facility] CenterBedside Migwlxm1459-37-66 12:01:00* Test Item Value Reference Range Interpretation Comments Bedside Glucose (test code = 34450-7) 216 70-120 H Meter ID: [id number][facility] Medical Center Planoodium Level 2018-04-07 06:14:00* Test Item Value Reference Range Interpretation Comments Sodium Level (test code = 2951-2) 138 136-145 [facility] CenterPotassium Frvcg7100-01-18 06:14:00* Test Item Value Reference Range Interpretation Comments Potassium Level (test code = 2823-3) 4.0 3.5-5.1 [facility] CenterChloride Qvsnt3102-18-43 06:14:00* Test Item Value Reference Range Interpretation Comments Chloride Level (test code = 2075-0) 105 98-107 [facility] CenterCarbon Dioxide Pqftu3127-59-09 06:14:00* Test Item Value Reference Range Interpretation Comments Carbon Dioxide Level (test code = 2028-9) 26 22-29 [facility] CenterAnion Cun0367-87-45 06:14:00* Test Item Value Reference Range Interpretation Comments Anion Gap (test code = 11312-9) 11.0 8-16 [facility] CenterBlood Urea Idxskfda3678-68-55 06:14:00* Test Item Value Reference Range Interpretation Comments Blood Urea Nitrogen (test code = 3094-0) 15 7-26 [facility] CenterCreatinine2018-08-08 06:14:00* Test Item Value Reference Range Interpretation Comments Creatinine (test code = 2160-0) 1.02 0.72-1.25 [facility] CenterBUN/Creatinine Ndkch2249-29-77 06:14:00* Test Item Value Reference Range Interpretation Comments BUN/Creatinine Ratio (test code = 3097-3) 15 6-25 [facility] CenterEstimat Glomerular Filtration Rate 2018-04-07 06:14:00* Test Item Value Reference Range Interpretation Comments Estimat Glomerular Filtration Rate (test code = 58434-6) 60- >60 Ranges were taken from the National Kidney Disease Education Program and the [facility] [employer] literature.Reference ranges:60 or greater: Deixvk87-23 ( for 3 consecutive months): Chronic kidney disease 15 or less: Kidney failureUnited [facility] CenterGlucose Zbaec3371-87-43 06:14:00* Test Item Value Reference Range Interpretation Comments Glucose Level (test code = THJ0669) 98 74-118 [facility] CenterCalcium Sqjex8491-38-64 06:14:00* Test Item Value Reference Range Interpretation Comments Calcium Level (test code = 65585-9) 9.0 8.4-10.2 [facility] CenterMagnesium Bhcoe3363-18-15 06:14:00* Test Item Value Reference Range Interpretation Comments Magnesium Level (test code = 67836-3) 1.8 1.3-2.1 [facility] CenterWhite Blood Ihtqz8629-00-77 06:05:00* Test Item Value Reference Range Interpretation Comments White Blood Count (test code = 6690-2) 5.22 4.8-10.8 [facility] CenterRed Blood Kzmbg8983-73-96 06:05:00* Test Item Value Reference Range Interpretation Comments Red Blood Count (test code = 789-8) 4.12 4.3-5.7 L [facility] CenterHemoglobin2018-08-08 06:05:00* Test Item Value Reference Range Interpretation Comments Hemoglobin (test code = 87037-2) 12.7 14.0-18.0 L [facility] CenterHematocrit2018-08-08 06:05:00* Test Item Value Reference Range Interpretation Comments Hematocrit (test code = 4544-3) 37.7 38.2-49.6 L [facility] CenterMean Corpuscular Raoctk7011-11-80 06:05:00* Test Item Value Reference Range Interpretation Comments Mean Corpuscular Volume (test code = 787-2) 91.5 81-99 [facility] CenterMean Corpuscular Puyzcdbynl4796-79-42 06:05:00* Test Item Value Reference Range Interpretation Comments Mean Corpuscular Hemoglobin (test code = 785-6) 30.8 28-32 [facility] CenterMean Corpuscular Hemoglobin Concent 2018-04-07 06:05:00* Test Item Value Reference Range Interpretation Comments Mean Corpuscular Hemoglobin Concent (test code = 786-4) 33.7 31-35 [facility] CenterRed Cell Distribution Rquti6360-03-22 06:05:00* Test Item Value Reference Range Interpretation Comments Red Cell Distribution Width (test code = 39912-0) 12.9 11.7 -14.4 [facility] CenterPlatelet Iirdq4691-34-34 06:05:00* Test Item Value Reference Range Interpretation Comments Platelet Count (test code = 777-3) 305 140-360 [facility] CenterNeutrophils (%) (Auto)2018-04-07 06:05:00 * Test Item Value Reference Range Interpretation Comments Neutrophils (%) (Auto) (test code = 97680-5) 58.0 38.7-80.0 [facility] CenterLymphocytes (%) (Auto)2018-04-07 06:05:00 * Test Item Value Reference Range Interpretation Comments Lymphocytes (%) (Auto) (test code = 736-9) 24.1 18.0-39.1 [facility] CenterMonocytes (%) (Auto)2018-04-07 06:05:00* Test Item Value Reference Range Interpretation Comments Monocytes (%) (Auto) (test code = 5905-5) 12.5 4.4-11.3 H [facility] CenterEosinophils (%) (Auto)2018-04-07 06:05:00 * Test Item Value Reference Range Interpretation Comments Eosinophils (%) (Auto) (test code = 713-8) 4.6 0.0-6.0 [facility] CenterBasophils (%) (Auto)2018-04-07 06:05:00* Test Item Value Reference Range Interpretation Comments Basophils (%) (Auto) (test code = 706-2) 0.6 0.0-1.0 [facility] CenterIM GRANULOCYTES %2018-04-07 06:05:00* Test Item Value Reference Range Interpretation Comments IM GRANULOCYTES % (test code = IM GRANULOCYTES %) 0.2 0.0- 1.0 [facility] CenterNeutrophils # (Auto)2018-04-07 06:05:00* Test Item Value Reference Range Interpretation Comments Neutrophils # (Auto) (test code = 751-8) 3.0 2.1-6.9 [facility] CenterLymphocytes # (Auto)2018-04-07 06:05:00* Test Item Value Reference Range Interpretation Comments Lymphocytes # (Auto) (test code = 27915-7) 1.3 1.0-3.2 [facility] CenterMonocytes # (Auto)2018-04-07 06:05:00* Test Item Value Reference Range Interpretation Comments Monocytes # (Auto) (test code = 742-7) 0.7 0.2-0.8 [facility] CenterEosinophils # (Auto)2018-04-07 06:05:00* Test Item Value Reference Range Interpretation Comments Eosinophils # (Auto) (test code = 711-2) 0.2 0.0-0.4 [facility] CenterBasophils # (Auto)2018-04-07 06:05:00* Test Item Value Reference Range Interpretation Comments Basophils # (Auto) (test code = 704-7) 0.0 0.0-0.1 [facility] CenterAbsolute Immature Granulocyte (auto 2018-04-07 06:05:00* Test Item Value Reference Range Interpretation Comments Absolute Immature Granulocyte (auto (marcella t code = Absolute Immature Granulocyte (auto) 0.01 0-0.1 [facility] CenterCHEST XRAY LINE YOXJMCIBP0341-13-24 17:40:00 [place] [address] Patient Name: DARRELL BOTELLO MR #: [id number] : 1945 Age/Sex: 73/M Req #: [id number] Adm Physician: KIRSTEN PEÑA MD Ordered by: SEGUNDO LEMUS Report #: [id number] Location: MED/SURG3 Room/Bed: [facility] Procedure: 64 DX/CHEST XRAY LINE PLACEMENT Exam Date: Exam Jamal e: REPORT STATUS: Signed PROCEDURE: A single AP view of the chest. COMPARISON: [facility], , CHEST 2 VIEWS, 11/09/2017, 7:55. INDICATIONS: LINE PLACEMENT FINDINGS: See impression. IM PRESSION: 1. interval placement of right-sided PICC line, which has its d istal tip projecting in the proximal to mid SVC. 2. Lungs are grossly clear . Cardiomediastinal silhouette is unremarkable. Darrell Paez M.D. Dictated by: Darrell Paez M.D. on 04/06/2018 at 17:40 Isa ctronically approved by: Darrell Paez M.D. on 04/06/2018 at 17:40 Dictated By: DARRELL PAEZ MD 39 Transcribed By: JANES on 04/06/181739 COPY TO: SEGUNDO LEMUS Blood Hhpppar7885-30-01 19:57:00* Test Item Value Reference Range Interpretation Comments Blood Culture (test code = 34182747) Growth detected. Culture wo rkup ordered. [facility] CenterCT FOOT LEFT [id number] 11:29:00 [place] [address] Patient Name: DARRELL BOTELLO MR #: [id number] : 1945 Age/Sex: 73/M Req #: [id number] [facility] Physician: Ordered by: MEGA WALTER MD Report #: [id number] Location: ER om/Bed: Procedure: CT/CT FOOT LEFT W Exam Date: 04/04/18 Exam Time: 1000 REPORT STATUS: S igned CT Lower extremity left with contrast, with reconstructions. CPT c ode: 79952, 75825 Indications: Progressive swelling, top of foot. Tech nique: Contiguous 2.5 mm thickness axial images were obtained through the left foot after the intravenous administration of 100 cc of nonionic contrast. Rationale for reconstructions: Coronal and sagittal reconstructions were gener ated to better facilitate assessment of alignment and extent of fracture lines . RADIATION DOSE: Total DLP: 117.14 mGy*cm Estimated effectiv e dose: (DLP x 0.015 x size factor) mSv CTDIvol has been reviewed. It is below the limits set by the Radiation Protocol Committee (RPC). Comparis on: Foot x-rays 0947 hours. Findings: There is diffuse soft tissue swelling of the lateral aspect of the foot and ankle extending to the dorsum of the fo ot. No loculated fluid collections. No air in the soft tissues. The vascu lar structures and muscle bundles are normal in morphology. Vascular structure s are widely patent. There are a few atherosclerotic calcifications in the art erial structures. Bones: Severe hallux valgus. Claw toe deformities of digi ts 2 through 5. Cortical thickening of the second metatarsal is suggestive of a healed stress fracture. No acute fractures. Tiny plantar calcaneal spur. The re are mild degenerative changes of the subtalar joint and tibiotalar joint. IMPRESSION: 1. Diffuse soft tissue swelling of the dorsum of the foot extending to the ankle without evidence of abscess. 2. Hallux valgus. 3. H ealed stress fracture of the second metatarsal. Thank you for this referral . Signed by: Dr. Dean Seo MD on 04/04/2018 11:36 AM Dictated By: DEAN SEO MD 1136 COPY TO: MEGA WALTER MD FOOT LEFT [id number] 10:54:00 [place] [address] Patient Name: DARRELL BOTELLO MR #: [id number] : 1945 Age/Sex: 73/M Req #: [id number] Adm Physician: Ordered by: MEGA WALTER MD Report #: [id number] Location: ER Room/Bed: Procedure: [id number] DX/FOOT LEFT COMPLETE E xa Date: 04/04/18 Exam Time: 0940 REPORT STATU S: Signed Foot complete CPT code: 35880 Indication: Foot infection, top of foot Technique: Portable A.P., oblique and lateral views of the lef t foot obtained. Comparison: None Findings: Calcaneus is intact w ith no significant spurring. The midfoot is intact. No evidence of acute dis placed fracture or dislocation involving any of the digits. There is cortical thickening of the metaphysis of the second metatarsal suggestive of remote fra cture. Hallux valgus is present with the hallux valgus angle of approximat loren 59 degrees. No periosteal new bone formation. No air or radiopaque foreig n bodies in the soft tissues. IMPRESSION: No radiographic evidence of osteomyelitis. Significant hallux valgus. Signed by: Dr. Dean salas MD on 04/04/2018 11:00 AM Dictated By: DEAN SEO MD Electron ically Signed By: DEAN SEO MD on 04/04/18 1100 Transcribed By: URMILA on 04/04/18 1100 COPY TO: MEGA WALTER MD Total Bilirubin 2018-04-04 10:27:00* Test Item Value Reference Range Interpretation Comments Total Bilirubin (test code = 1975-2) 0.8 0.2-1.2 [facility] CenterAspartate Amino Transf (AST/SGOT) 2018-04-04 10:27:00* Test Item Value Reference Range Interpretation Comments Aspartate Amino Transf (AST/SGOT) (test code = Aspartate Amino Transf (AST/SGOT)) 15 5-34 [facility] CenterAlanine Aminotransferase (ALT/SGPT) 2018-04-04 10:27:00* Test Item Value Reference Range Interpretation Comments Alanine Aminotransferase (ALT/SGPT) (test code = 1742-6) 15 0-55 [facility] CenterTotal Qcgtojg8561-95-61 10:27:00* Test Item Value Reference Range Interpretation Comments Total Protein (test code = 2885-2) 6.6 6.5-8.1 [facility] CenterAlbumin2018-08-05 10:27:00* Test Item Value Reference Range Interpretation Comments Albumin (test code = 1751-7) 3.2 3.5-5.0 L [facility] CenterGlobulin2018-08-05 10:27:00* Test Item Value Reference Range Interpretation Comments Globulin (test code = 46919-2) 3.4 2.3-3.5 [facility] CenterAlbumin/Globulin Rqzeh0411-60-56 10:27:00 * Test Item Value Reference Range Interpretation Comments Albumin/Globulin Ratio (test code = 1759-0) 0.9 0.8-2.0 [facility] CenterAlkaline Tzxbpemevfu8839-96-20 10:27:00* Test Item Value Reference Range Interpretation Comments Alkaline Phosphatase (test code = 6768-6) 40 40-150 [facility] CenterLactic Acid Vkjot9834-44-95 10:22:00* Test Item Value Reference Range Interpretation Comments Lactic Acid Level (test code = Lactic Acid Level) 5.7 4.5- 19.8 [facility] CenterInfluenza Virus Types A,B Antigen 2017-08-30 14:08:00* Test Item Value Reference Range Interpretation Comments Influenza Virus Types A,B Antigen (test code = 46195-1) POSITIVE FLU A NEGATIVE H Results called to TRISTA ALVARES at 1406 on 08/30/17 by EYAD TOMLINSON. RB [place].Re aundrea LEFT MSG TO [facility] in infection control at 1406 on 08/30/17 by EYAD TOMLINSON.[facility] CenterCHEST 2 VIEWS [facility] [address] [place] [address] Patient Name: DARRELL BOTELLO MR #: [id number] : 1945 Age/Sex: 72/M Req #: [id number] Adm Physician: Ordered by: JUANITO DEE, BJORN Espinal MD Report #: [id number] Location: DX Room/Bed: Procedure: [id number] DX/CHEST 2 VIEWS Exam Date: 11/09/17 Exam Time: 0800 REPORT STATUS: Signed PROCEDURE: X-RAY CHEST, TWO VIEWS COMPARISON: None. INDICATIONS: D YSPHAGIA FINDINGS: LUNGS: No consolidations or edema. PLE URA: No effusions or pneumothorax. HEART T MEDIASTINUM: The heart is within normal size-limits. BONES T SOFT TISSUES: No acute findings. CONCLUSION: No acute thoracic abnormality. Gaurav shultz D.O. Dictated by: Gaurav Arguelles D.O. on 11/09/2017 at 8:39 El ectronically approved by: Gaurav Arguelles D.O. on 11/09/2017 at 8:39 Dictated By: GAURAV ARGUELLES DO 8 Transcribed By: JANES on 11/09/17838 COPY TO: BJORN STORY UPPER GI W/AIR CONTR [place] [address] Patient Name: DARRELL BOTELLO MR #: [id number] : 1945 Age/Sex: 72/M Req #: [id number] [facility] Physician: Ordered by: JUANITO DEE, BJORN Espinal MD Report #: [id number] Location: DX Room/Bed: Procedure: [id number] DX/UPPER GI W/AIR CONT R Exam Date: 11/09/17 Exam Time: 0800 REPORT S TATUS: Signed PROCEDURE: X-RAY UPPER GI SERIES WITH AIR CONTRAST COMP ARISON: UGI dated 07/18/2016 INDICATIONS: GERD FINDINGS: The p atient was given air crystals, thick barium, and thin barium to drink in upri ght and prone positions. Multiple images of the esophagus, stomach and duode num were obtained. The esophagus is normal in appearance without evidence of dysmotility, mucosal irregularity or stricture. There is a small hiatal he rnia with reflux. Focal thickened folds along the greater curvature of the stomach are noted. Review of prior study shows this to be a new finding. En doscopy is recommended. No extrinsic abnormality. There is no evidence of ulc er. Fluoroscopy time: 2.2 minutes. Total dose: 40.55 mGy CONC LUSION: 1. Small sliding hiatal hernia with gastroesophageal reflux. 2. I nterval development of thickened folds along the greater curvature of the sto mach. Gaurav Arguelles D.O. Dictated by: Gaurav Arguelles D.O. on 07/2018 at 9:34 Electronically approved by: Gaurav Arguelles D.O. on 2017 at 9:34 Dictated By: GAURAV ARGUELLES DO Electronically Si gned By: GAURAV ARGUELLES DO on 11/09/17933 Transcribed By: JANES on 11/09/17 COPY TO: BJORN SOLOMON CHEST 2 VIEWS [place] [address] Patient Name: DARRELL BOTELLO MR #: [id number] : 1945 Age/Sex: 72/M Req #: [id number] Adm Physician: Ordered by: ORSY PINON MD Report #: [id number] Location: ER Room/Bed: Procedure: [id number] DX/CHEST 2 VIEWS Exam Date: 08/30/17 Exam Time: 1321 REPORT STATUS: Signed Two view chest x-ray INDICATION: Fever COMPARISON: None. FIN DINGS: The lateral image is motion degraded. The cardiomediastinal silho uette is normal. There is no evidence of hilar lymphadenopathy. The pul monary vascular markings are normal. Patchy right basilar airspace opacities c ould be due to atelectasis or infiltrate. No pleural effusion or pneumotho rax.. Evaluation of the osseous structures demonstrates degenerative rodriguez es of the spine. No focal osseous lesions. IMPRESSION: Mild bibasila r atelectasis. Small infiltrates cannot be excluded. Signed by: Dr. Angelo Seo MD on 08/30/2017 2:07 PM Dictated By: DEAN SEO MD E lectronically Signed By: DEAN SEO MD on 08/30/171406 Transcribed By: URMILA on 08/30/171406 COPY TO: ROSY PINON MD MRI SPINE LUMBAR WO [place] [address] Patient Name: DARRELL BOTELLO MR #: [id number] : 1945 Age/Sex: 72/M Req #: [id number] Adm Physician: Ordered by: JUANITO DEE, BJORN Espinal MD Report #: [id number] Location: MRI Room/Bed: Procedure: [id number] MRI/MRI SPINE LUMBAR WO Exam Date: 07/02/17 Exam Time: 0815 REPORT STATUS: Signed EXAMINATION: MRI of the lumbar spine without contrast H ISTORY: Low back pain for months, radiculopathy COMPARISON: Lumbar spine x-ray done 06/18/2017 TECHNIQUE: Sagittal T1, T2, STIR; axial T2 and proton density . FINDINGS: It is assumed that there are 5 lumbar vertebrae. Curvature/Alignment: Normal lordosis. Levoscoliosis with apex at L3 and righ tward distal compensatory curve. Minimal right lateral at L5-S1 and left later al spondylolisthesis at L3-L4. Vertebrae: No evidence of recent fracture, infection, or neoplasm. Minimal chronic anterior wedging of the T11 and T12 ve rtebral bodies. The posterior portion and no canal stenosis. Shallow Schmorl n odes from T11 through L4. Conus: Normal, terminating at L1-L2 Cau da equina: Unremarkable. Lower thoracic: Unremarkable. Paraspinal soft tissues: Partially visualized multiple mostly T2 hyperintense likely cys t in both kidneys, focal areas of lower attenuation and also partially visuali zed and some of them hypointense. Degenerative changes: L1-L2: Min imal symmetric disc bulge without stenosis L2-L3: Minimal central disc bulge without stenosis. L3-L4: Decreased disc height and signal intensi ty, asymmetric to the right disc osteophyte, ligamenta flava thickening and fa cet arthrosis. Moderate right and mild left foraminal stenosis. Minimal canal narrowing. L4-L5: Asymmetric to left disc, marginal endplate osteophyte and facet arthrosis. Moderate left foraminal stenoses. L5-S1: Decrea sed disc height and T2 signal intensity, asymmetric to left disc osteophyte an d facet arthrosis. Moderate left foraminal stenosis. Sacroiliac joints: M inimal degenerative changes. IMPRESSION: 1. Moderate foraminal fawn nosis on the right at L3-L4 and on the left at L4-L5 and L5-S1 due to degenera tive changes and scoliosis. 2. Mild multilevel spondylosis with mild spina l canal stenosis at L3-L4. 3. Partially visualized multiple mostly T2 hyp erintense probable cyst in the kidneys, please see dictation of abdomen CT on 07/29/2016 and renal ultrasound on 07/29/2016. Signed by: Dr. Rebeca Duran M.D. on 07/02/2017 12:22 PM Dictated By: REBECA DURAN MD 1222 Transcribed By: URMILA on 07/02/17 1222 COPY TO: BJORN SOLOMON LUMBAR, COMPLETE MIN 4VW [place] [address] Patient Name: DARRELL BOTELLO MR #: [id number] : 1945 Age/Sex: 72/M Req #: [id number] Adm Physician: Ordered by: BJORN SOLOMON MD, MD Report #: [id number] Location: [facility] Room/Bed: Procedure: [id number] DX/SP LUMBAR, COMPLET E MIN 4VW Exam Date: Exam Time: REPORT STATU S: Signed PROCEDURE: SP LUMBAR, COMPLETE MIN 4VW COMPARISON: None. INDICATIONS: LIFTING AT WORK, LOWER BACK PAIN FINDINGS: 5 views of the lumbar spine show 5 lumbar type vertebrae. Vertebral body heigh ts are maintained. There is disc space narrowing at L3-4 and L5-S1. Osteophyt es are present at L2-3 and L3-4. There is mild levoscoliosis. There is facet arthrosis from L3-S1. There is mild levoscoliosis. Soft tissues unremarkable. CONCLUSION: No acute bony abnormality. There are extensive degenera tive changes including disc space narrowing at L3-4 and L5-S1, and multilevel facet arthrosis. Dictated by: Maxi Rodriguez M.D. on 06/18/2017 at 8:34 Electronically approved by: Maxi Rodriguez M.D. on 06/18/2017 at 8:34 Dictated By: MAXI RODRIGUEZ MD 3 Transcribed By: JANES on 06/18/17833 COPY T O: BJORN SOLOMON
[2020-06-03] MEDS ORDERED: PIPER-TAZ 3.375 GM 50 ML IV ONE (14:15)
[2020-06-03 14:33] LABS: BASOPHILS % 0.4 % (0.0-1.0); EOSINOPHILS # (AUTO) 0.2 (0.0-0.4); EOSINOPHILS % 4.1 % (0.0-6.0); HEMOGLOBIN 12.8 g/dL (14.0-18.0); LYMPHOCYTES # (AUTO) 1.5 (1.0-3.2); LYMPHOCYTES % 27.2 % (18.0-39.1); MEAN CORPUSCULAR HEMOGLOBIN 29.7 pg (28-32); MEAN CORPUSCULAR VOLUME 92.8 fL (81-99); MONOCYTES # (AUTO) 0.7 (0.2-0.8); NEUTROPHILS # (AUTO) 3.1 (2.1-6.9); NEUTROPHILS % 55.9 % (38.7-80.0); PLATELET COUNT 317 x10e3/uL (140-360); RED BLOOD COUNT 4.31 x10e6/uL (4.3-5.7); RED CELL DISTRIBUTION WIDTH 13.1 % (11.7-14.4)
[2020-06-03 14:45] LABS: INR 1.04; PROTHROMBIN TIME 14.1 seconds (11.9-14.5)
[2020-06-03 14:46] LABS: PARTIAL THROMBOPLASTIN TIME 31.1 seconds (23.8-35.5)
[2020-06-03 14:54] LABS: ALBUMIN 3.7 g/dL (3.5-5.0); ANION GAP 11.8 mmol/L (8-16); CALCIUM 9.4 mg/dL (8.4-10.2); CREATININE, SERUM 1.54 mg/dL (0.72-1.25); POTASSIUM 4.8 mmol/L (3.5-5.1)
[2020-06-03] MEDS ORDERED: VANCOMYCIN 1GM/NS 250 ML 250 ML IV ONE (15:00)
--- NOTE | 2020-06-03 15:07 | Diagnostic Imaging Report ---
Exam: Left hand radiographs-3 views History: Left hand cellulitis, query foreign body. Comparison: None. Findings/Impression: No evidence of acute fracture or malalignment. There is a punctate radiodensity along the radial soft tissues of the base of the thumb, suspicious for foreign body. Recommend clinical correlation. Soft tissue edema in the proximal ring finger. There are severe degenerative changes of the first carpometacarpal joint with [id number]-rn-[id number] contact and bony osteophytes. Signed by: Dr. Anne Kerns MD on 06/03/2020 3:03 PM
--- NOTE | 2020-06-03 15:10 | Diagnostic Imaging Report ---
EXAMINATION: CHEST SINGLE (PORTABLE) INDICATION: LEFT HAND CELLULITIS COMPARISON: Chest radiograph 03-18-2020. FINDINGS: TUBES and LINES: None. LUNGS: Lungs are well inflated. There is no evidence of pneumonia or pulmonary edema. Minimal patchy left basilar opacity, likely atelectasis. PLEURA: No pleural effusion or pneumothorax. HEART AND MEDIASTINUM: The cardiomediastinal silhouette is unremarkable. There are atherosclerotic calcifications within the aorta. BONES AND SOFT TISSUES: No acute osseous lesion. Soft tissues are unremarkable. UPPER ABDOMEN: No free air under the diaphragm. IMPRESSION: No acute thoracic abnormality. Signed by: Dr. Anne Kerns MD on 06/03/2020 3:07 PM
--- NOTE | 2020-06-03 16:09 | Emergency Department Note ---
History of Present Illnes History of Present Illness Chief Complaint: Extremity Trauma/Pain History of Present Illness This is a 75 year old male pt came in POV for c/o swelling to the left hand, pt states that he handled a broken glass 2 weeks ago and states that a piece might have been stuck in one of his fingers, pt noticed more swelling and now has limited ROM to the left hand, pt states that it might be poison cat contact because the itching has now spread to his right hand and the back of his neck. Historian: Patient Arrival Mode: Car It Program Engagement Director Required: No Onset (how long ago): week(s) (2) Location: left hand Quality: swelling, pain Radiation: Reports non-radiation Severity: moderate Onset quality: gradual Timing of current episode: constant Progression: worsening Chronicity: new Context: Denies recent illness Relieving factors: none Exacerbating factors: none Associated symptoms: Reports denies other symptoms Past Medical/Family History Physician Review I have reviewed the patient's past medical and family history. Any updates have been documented here. Past Medical History Recent Fever: No Clinical Suspicion of Infectio: Yes New/Unexplained Change in Ment: No Past Medical History: Hypertension, Hyperlipedemia Other Medical History: Cholesterol Past Surgical History: None Other Surgery: Rt hernia repair cataract Social History Smoking Cessation: Never Smoker Counseling Performed: No Alcohol Use: None Any Illegal Drug Use: No TB Exposure/Symptoms: No Physically hurt or threatened: No Family History Family history of heart diseas: No Other Last Tetanus: Unknown Any Pre-Existing Lines (PICC,: No Review of Systems Review of Systems Constitutional: Reports no symptoms EENTM: Reports no symptoms Cardiovascular: Reports no symptoms Respiratory: Reports no symptoms Gastrointestinal: Reports no symptoms Genitourinary: Reports no symptoms Musculoskeletal: Reports as per HPI Integumentary: Reports as per HPI Neurological: Reports no symptoms Psychological: Reports no symptoms Endocrine: Reports no symptoms Hematological/Lymphatic: Reports no symptoms Physical Exam Related Data Allergies: Coded Allergies: No Known Allergies (Unverified , 05/25/17) Triage Vital Signs Vital Signs Date Time Temp Pulse Resp B/P (MAP) Pulse Ox O2 Delivery O2 Flow Rate FiO2 06/03/20 14:02 98.9 71 18 130/64 98 Vital signs reviewed: Yes Physical Exam CONSTITUTIONAL Constitutional: Present well-developed, Present well-nourished HENT HENT: Present normocephalic, Present atraumatic, Present oropharynx clear/moist, Present nose normal HENT L/R: Present left ext ear normal, Present right ext ear normal EYES Eyes: Reports PERRL, Reports conjunctivae normal NECK Neck: Present ROM normal PULMONARY Pulmonary: Present effort normal, Present breath sounds normal CARDIOVASCULAR Cardiovascular: Present regular rhythm, Present heart sounds normal, Present capillary refill normal, Present normal rate GASTROINTESTINAL Abdominal: Present soft, Present nontender, Present bowel sounds normal GENITOURINARY Genitourinary: Present exam deferred SKIN Skin: Present warm, Present dry MUSCULOSKELETAL Musculoskeletal: Present ROM normal, Present other (left hand with swelling of both palmar and dorsal surfaces, fingers swollen with worst located at left ring finger mostly palmar surface, no tenderness of flexor tendons and he able to e xtend all fingers completely with only mild pain, distal N/V intact, erythematous and increased warmth of left hand) NEUROLOGICAL Neurological: Present alert, Present oriented x 3, Present no gross motor or sensory deficits PSYCHOLOGICAL Psychological: Present mood/affect normal, Present judgement normal Results Laboratory Result Diagram: 06/03/20 1413 06/03/20 1413 Laboratory Laboratory Tests Test 06/03/20 14:13 White Blood Count 5.58 x10e3/uL (4.8-10.8) Red Blood Count 4.31 x10e6/uL (4.3-5.7) Hemoglobin 12.8 g/dL (14.0-18.0) Hematocrit 40.0 % (38.2-49.6) Mean Corpuscular Volume 92.8 fL (81-99) Mean Corpuscular Hemoglobin 29.7 pg (28-32) Mean Corpuscular Hemoglobin Concent 32.0 g/dL (31-35) Red Cell Distribution Width 13.1 % (11.7-14.4) Platelet Count 317 x10e3/uL (140-360) Neutrophils (%) (Auto) 55.9 % (38.7-80.0) Lymphocytes (%) (Auto) 27.2 % (18.0-39.1) Monocytes (%) (Auto) 12.0 % (4.4-11.3) Eosinophils (%) (Auto) 4.1 % (0.0-6.0) Basophils (%) (Auto) 0.4 % (0.0-1.0) Neutrophils # (Auto) 3.1 (2.1-6.9) Lymphocytes # (Auto) 1.5 (1.0-3.2) Monocytes # (Auto) 0.7 (0.2-0.8) Eosinophils # (Auto) 0.2 (0.0-0.4) Basophils # (Auto) 0.0 (0.0-0.1) Absolute Immature Granulocyte (auto 0.02 x10e3/uL (0-0.1) Prothrombin Time 14.1 seconds (11.9-14.5) Prothromb Time International Ratio 1.04 Activated Partial Thromboplast Time 31.1 seconds (23.8-35.5) Sodium Level 137 mmol/L (136-145) Potassium Level 4.8 mmol/L (3.5-5.1) Chloride Level 109 mmol/L (98-107) Carbon Dioxide Level 21 mmol/L (22-29) Anion Gap 11.8 mmol/L (8-16) Blood Urea Nitrogen 36 mg/dL (7-26) Creatinine 1.54 mg/dL (0.72-1.25) Estimat Glomerular Filtration Rate 44 ML/MIN (60-) BUN/Creatinine Ratio 23 (6-25) Calcium Level 9.4 mg/dL (8.4-10.2) Total Bilirubin 0.5 mg/dL (0.2-1.2) Aspartate Amino Transf (AST/SGOT) 25 IU/L (5-34) Alanine Aminotransferase (ALT/SGPT) 18 IU/L (0-55) Alkaline Phosphatase 59 IU/L (40-150) Total Protein 7.3 g/dL (6.5-8.1) Albumin 3.7 g/dL (3.5-5.0) Globulin 3.6 g/dL (2.3-3.5) Albumin/Globulin Ratio 1.0 (0.8-2.0) Lab results reviewed: Yes Imaging Imaging results reviewed: Yes Impressions Exam: Left hand radiographs-3 views History: Left hand cellulitis, query foreign body. Comparison: None. Findings/Impression: No evidence of acute fracture or malalignment. There is a punctate radiodensity along the radial soft tissues of the base of the thumb, suspicious for foreign body. Recommend clinical correlation. Soft tissue edema in the proximal ring finger. There are severe degenerative changes of the first carpometacarpal joint with [id number] contact and bony osteophytes. Signed by: Dr. Anne Kerns MD on 06/03/2020 3:03 PM Assessment & Plan Medical Decision Making MDM hand swelling, pain, erythema - likely cellulitis - check xray, cbc, chem, blood cx's - r/o FB, renal insuff, electrolyte abnl Reassessment Reassessment admit to Dr Rodrigues Assessment & Plan Final Impression: (1) Cellulitis Depart Disposition: ADMITTED Last Vital Signs Date Time Temp Pulse Resp B/P (MAP) Pulse Ox O2 Delivery O2 Flow Rate FiO2 06/03/20 14:02 98.9 71 18 130/64 98 Home Meds Reported Medications Cephalexin Monohydrate (KEFLEX) 500 Mg Capsule, MG PO TID 06/08/20 Gluc 2KCL/Chondr/Chidi Hy/Hy Ac (GLUCOSAMINE & CHONDROITIN CAP) 1 Each Capsule, PO DAILY 10/29/16 Lisinopril (LISINOPRIL) 10 Mg Tablet, 10 MG PO DAILY, #30 TAB 10/29/16 Ibuprofen (IBUPROFEN) 400 Mg Tablet, 800 MG PO Q4H, TAB 10/29/16 Medications in the ED Sodium Chloride 1,000 ml @ 0 mls/hr Q0M STAT IV Last administered on 06/03/20at 14:39; Admin Dose 999 MLS/HR; Start 06/03/20 at 14:08; Stop 06/03/20 at 14:13; Status DC Piperacillin Sod/ Tazobactam Sod 50 ml @ 50 mls/hr NOW ONCE IV Last administer ed on 06/03/20at 14:39; Admin Dose 50 MLS/HR; Start 06/03/20 at 14:15; Stop 06/03/20 at 15:14; Status DC Vancomycin HCl 250 ml @ 167 mls/hr NOW ONCE IV Last administered on 06/03/20at 14:39; Admin Dose 167 MLS/HR; Start 06/03/20 at 15:00; Stop 06/03/20 at 16:29 ELISABETH WATERMAN MD Jun 03, 2020 16:08
[2020-06-03] MEDS ORDERED: ONDANSETRON HCL INJ 2MG/ML 2ML 2 MG/ML VIAL IV PRN (16:30)
[2020-06-03] MEDS ORDERED: MORPHINE SULFATE 2 MG/ML SYR 1ML IV PRN (16:30)
--- OUTSIDE RECORDS SUMMARY | 2020-06-03 16:34 | XMS REPORT | Continuity of Care Document ---
Author Author [facility] t Organization [facility] Address [address] [place] [address] Phone Unavailable Care Team Providers Care Earth Sciences Professor Name Role Phone BJORN SOLOMON PCP Adriano WATERMAN LAIRD Attphys Unavailable KORACHELLE, TAREK Attphys Unavailable BJORN SOLOMON Attphys Unavailable BELA SAHU Attphys Unavailable Adriano PEÑA YICHING Attphys Unavailable Mei PINON TUE Attphys Unavailable Adriano PEÑA YICHING Admphys Unavailable Payers Payer Name Policy Type Policy Number Effective Date Expiration Date [facility] [id number] 2020 00:00:00 [facility] [id number] 2020 00:00 :00 [facility] Problems Condition Name Condition Details Condition Category Status Onset Date Resolution Date Last Treatment Date Treating Clinician Comments Source Acute bronchitis Problem Active [facility] Gastroesophageal reflux disease Problem Active [facility] Dysphagia Problem Active [facility] Allergies, Adverse Reactions, Alerts Allergy Name Allergy Type Status Severity Reaction(s) Onset Date Inacti ve Date Treating Clinician Comments Source No Known Allergies DA Active U 2020-03-22 00:00:00 [facility] No Known Allergies DA Active U 2011-03-02 00:00:00 [facility] Social History Social Habit Start Date Stop Date Quantity Comments Source Sex Assigned At 1945 00:00:00 1945 00:00:00 Male [facility] Medications Ordered Medication Name Filled Medication Name Start Date Stop Da te Current Medication? Ordering Clinician Indication Dosage Frequency Signature (SIG) Comments Components Source Gluc 2KCL/Chondr/Chidi Hy/Hy Ac (Glucosamine & Chondroi tin Cap) 1 Each CAPSULE Gluc 2KCL/Chondr/Chidi Hy/Hy Ac (Glucosamine & Chondroitin Cap) 1 Each CAPSULE Yes Daily [facility] Ibuprofen Ibuprofen Yes 800 Every 4 Hours [facility] Lisinopril Lisinopril Yes 10 Daily [facility] Pravastatin Sodium Pravastatin Sodium 2018-07-15 00:00:00 No 40 Daily [facility] Omeprazole Omeprazole 2018-04-04 00:00:00 No 40 Jolie ly [facility] Vital Signs Vital Name Observation Time Observation Value Comments Source Body Temperature 2020-03-18 11:15:00 98.0 [degF] [facility] Weight 2020-03-18 07:00:00 186 [lb_av] [facility] BMI (Body Mass Index) 2020-03-18 07:00:00 30.0 kg/m2 [facility] Procedures This patient has no known procedures. Plan of Care Planned Activity Planned Date Details Comments Source Instructions Dysphagia [facility] Instructions Bronchitis (Acute) - Adult C HI [facility] Encounters Start Date/Time End Date/Time En[facility] En[facility] ID Source 2020-03-18 07:19:00 2020-03-18 11:17:00 Departed Emergency Room DOMINGA FORTUNE [facility] [id number] [facility] 2019-08-17 10:02:00 2019-08-17 10:02:00 Registered Clinic 3 BJORN SOLOMON [facility] [id number] [facility] 2018-04-04 11:54:00 2018-04-09 22:30:00 Discharged Inpatient 1 PEÑARENEECHRISTINA [facility] [id number] [facility] 2017-11-09 07:40:00 2017-11-09 07:40:00 Reg[address] Clinic [facility]IL SOLOMON [facility] [id number] [facility] 2017-08-30 13:03:00 2017-08-30 14:27:00 Departed Emergency Room ER ROSY PINON [facility] [id number] [facility] 2017-07-02 06:58:00 2017-07-02 06:58:00 Registered Clinic [facility] [id number] [facility] 2017-06-18 07:19:00 2017-06-18 07:19:00 Registered Clinic [facility] [id number] [facility] Results Test Description Test Time Test Comments Results Result Comments Source CHEST SINGLE (PORTABLE) 2020-06-03 15:04:00 [place] [address] Patient Name: DARRELL BOTELLO MR #: [id number] : 1945 Age/Sex: 75/M Req #: [id number] Adm Physician: Ordered by: ELISABETH WATERMAN MD Report #: [id number] Location: ER Room/Bed: Procedure: [id number] DX/CHEST SINGLE (PORTABLE) Exam Date: 06/03/20 Exam Time: 1432 REPORT STATUS: Signed EXAMINATION: CHEST SINGLE (PORTABLE) INDICATION: LEFT HAND CELLULITIS COMPARISON: Chest radiograph 03-18-2020. FINDINGS: TUBES and LINES: None. LUNGS: Lungs are well inflated. There is no evidence of pneumonia or pulmonary ed geovanna. Minimal patchy left basilar opacity, likely atelectasis. PLEURA: No pleural effusion or pneumothorax. HEART AND MEDIASTINUM: The cardiomediastinal silhouette is unremarkable. There are atherosclerotic calcifications within the aorta. BONES AND SOFT TISSUES: No acute osseous lesion. Soft tissues are unremarkable. UPPER ABDOMEN: No free air under the diaphragm. IMPRESSION: No acute thoracic abnormality. Signed by: Dr. Nithya Vaz MD on 06/03/2020 3:07 PM Dictated By: NITHYA VAZ MD 06 Transcribed By: URMILA on 06/03/201506 COPY TO: ELISABETH WATERMAN MD HAND 3+ VIEWS LEFT 2020-06-03 15:01:00 [place] [address] Patient Name: DARRELL BOTELLO MR #: [id number] : 1945 Age/Sex: 75/M Req #: [id number] Adm Physician: Ordered by: ELISABETH WATERMAN MD Report #: [id number] Location: ER Room/Bed: Procedure: [id number] DX/HAND 3+ VIEWS LEFT Exam Date: 06/03/20 Exam Time: 1432 REPORT STATUS: Signed Exam: Left hand radiographs-3 views History: Left hand cellulitis, query foreign body. Comparison: None. Findings/Impression: No evidence of acute fracture or malalignment. There is a punctate radiodensity along the radial soft tissues of the base of the thumb, suspicious for foreign body. Recommend clinical correlation. Soft tissue edema in the proximal ring finger. There are severe degenerative changes of the first carpometacarpal joint with [id number]-dp-gqnf contact and bony osteophytes. Signed by: Dr. Nithya Vaz MD on 06/03/2020 3:03 PM Dictated By: NITHYA VAZ MD 1502 Transcribed By: URMILA on 06/03/20 150 COPY TO: ELIASBETH WATERMAN MD - CT HEAD/BRAIN W/O CONT 2020-03-22 13:46:00 N gina: DARRELL BOTELLO [facility] : 1945 Age/S: 75 / M [address] [facility] Unit #: [id number] Loc: [place] [address] Phys: Brenna Banks NP Acct: [id number] Dis Date: Status: REG ER PHONE #: [phone] Exam Date: 03/22/2020 1324 FAX #: [phone] Reason: head injury EXAMS: CPT CODE: [id number] CT HEAD/BRAIN W/O CONT 09023 HISTORY: head injury TECHNIQUE: Noncontrast 2.[address] of the head. Examination acquired within 24 hours of arrival. Automated exposure control for dose reduction. COMPARISON: None FINDINGS: Tiny focus of air in the scalp near the vertex () which may be posttraumatic given the history [...] or intracranial injury. Diffuse cortical atrophy. Location: [facility] at 1346 Reported and signed by: Vijay Alejandra MD CC: Brenna Banks NP Technologist:Naveen Ho RT(R),(MR),(CT) CTDI: DLP: Trnscb Date/Time: 03/22/2020 (1346) t.[id number].[id number] Orig Print D/T: S: 03/22/2020 (2902) PAGE 1 Signed Report CHEST SINGLE (PORTABLE) 2020-03-18 08:31:00 [place] [address] Patient Name: DARRELL BOTELLO MR #: [id number] : 1945 Age/Sex: 74/M Req #: [id number] Adm Physician: Ordered by: DOMINGA FORTUNE MD Report #: [id number] Location: ER Room/Bed: Procedure: [id number] DX/CHEST SINGLE (PORTABLE) Exam Date: 03/18/20 Exam Time: 0748 REPORT STATUS: Signed EXAMINATION: CHEST SINGLE (PORTABLE) [...] Count (test code = 6690-2) 5.93 4.8-10.8 [facility] automated count (number/volume)2020-03-18 07:57:00* Test Item Value Reference Range Interpretation Comments Red Blood Count (test code = 789-8) 4.35 4.3-5.7 [facility] hemoglobin measurement (moles/volume)2020-03-18 07:57:00* Test Item Value Reference Range Interpretation Comments Hemoglobin (test code = 76245-7) 13.3 14.0-18.0 [facility] TexasAutomated blood hematocrit (volume fraction)2020-03-18 07:57:00* Test Item Value Reference Range Interpretation Comments Hematocrit (test code = 4544-3) 41.1 38.2-49.6 [facility] TexasAutomated erythrocyte mean corpuscular fsgagg0224-76-12 07:57:00* Test Item Value Reference Range Interpretation Comments Mean Corpuscular Volume (test code = 787-2) 94.5 81-99 [facility] TexasAutomated erythrocyte mean corpuscular hemoglobin (mass per erythrocyte)2020-03-18 07:57:00* Test Item Value Reference Range Interpretation Comments Mean Corpuscular Hemoglobin (test code = 785-6) 30.6 28-32 [facility] TexasAutomated erythrocyte mean corpuscular hemoglobin concentration measurement (mass/volume)2020-03-18 07:57:00* Test Item Value Reference Range Interpretation Comments Mean Corpuscular Hemoglobin Concent (test code = 786-4) 32.4 31-35 [facility] TexasRDW WfmOo-Tmj1485-58-19 07:57:00* Test Item Value Reference Range Interpretation Comments Red Cell Distribution Width (test code = 13625-4) 13.2 11.7 -14.4 [facility] TexasAutomated blood platelet count (count/volume)2020-03-18 07:57:00* Test Item Value Reference Range Interpretation Comments Platelet Count (test code = 777-3) 299 140-360 [facility] TexasAutomated blood segmented neutrophil count as percentage of total ihbsnozcjt0650-94-90 07:57:00* Test Item Value Reference Range Interpretation Comments Neutrophils (%) (Auto) (test code = 12955-2) 51.7 38.7-80.0 [facility] TexasAutomated blood lymphocyte count as percentage ot total jschxuplta5807-38-20 07:57:00* Test Item Value Reference Range Interpretation Comments Lymphocytes (%) (Auto) (test code = 736-9) 29.3 18.0-39.1 [facility] TexasAutomated blood monocyte count as percentage of total xcefdabxoh4347-79-24 07:57:00* Test Item Value Reference Range Interpretation Comments Monocytes (%) (Auto) (test code = 5905-5) 12.8 4.4-11.3 [facility] TexasAutformerly [facility]alt[facility] blood eosinophil count as percentage of total ljlgeacufu1540-43-96 07:57:00* Test Item Value Reference Range Interpretation Comments Eosinophils (%) (Auto) (test code = 713-8) 5.2 0.0-6.0 [facility] TexasAutomated blood basophil count as percentage of total efzuuunkae7669-87-77 07:57:00* Test Item Value Reference Range Interpretation Comments Basophils (%) (Auto) (test code = 706-2) 0.8 0.0-1.0 [facility] TexasFluoroscopic procedure less than one hour yzpsvnyh9121-91-58 07:57:00* Test Item Value Reference Range Interpretation Comments IM GRANULOCYTES % (test code = IM GRANULOCYTES %) 0.2 0.0- 1.0 [facility] TexasAutomated blood neutrophil count 2020-03-18 07:57:00* Test Item Value Reference Range Interpretation Comments Neutrophils # (Auto) (test code = 751-8) 3.1 2.1-6.9 [facility] TexasBlood lymphocytes count (number/volume) 2020-03-18 07:57:00* Test Item Value Reference Range Interpretation Comments Lymphocytes # (Auto) (test code = 72581-5) 1.7 1.0-3.2 [facility] TexasBlood monocytes automated count (number/volume)2020-03-18 07:57:00* Test Item Value Reference Range Interpretation Comments Monocytes # (Auto) (test code = 742-7) 0.8 0.2-0.8 [facility] TexasAutomated blood eosinophil count 2020-03-18 07:57:00* Test Item Value Reference Range Interpretation Comments Eosinophils # (Auto) (test code = 711-2) 0.3 0.0-0.4 [facility] TexasAutomated blood basophil count (count/volume)2020-03-18 07:57:00* Test Item Value Reference Range Interpretation Comments Basophils # (Auto) (test code = 704-7) 0.1 0.0-0.1 [facility] TexasFluoroscopic procedure less than one hour zqlafkgg4562-42-94 07:57:00* Test Item Value Reference Range Interpretation Comments Absolute Immature Granulocyte (auto (marcella t code = Absolute Immature Granulocyte (auto) 0.01 0-0.1 [facility] TexasProthrombin time (PT) in platelet poor plasma by coagulation tcjul7128-97-78 07:57:00* Test Item Value Reference Range Interpretation Comments Prothrombin Time (test code = 5902-2) 12.6 11.9-14.5 [facility] TexasINR in Platelet poor plasma by Coagulation yyxmu5492-00-09 07:57:00* Test Item Value Reference Range Interpretation Comments Prothromb Time International Ratio (test code = 6301-6) 0.89 Oral Anticoagulant Therapy INR Values:1. Low Intensity Therapy 1.5 - 2.02 . Moderate Intensity Therapy 2.0 - 3.03. High Intensity Therapy(1) 2.5 - 3. 54. High Intensity Therapy(2) 3.0 - 4.05. Panic Value INR > 5.0 [facility] sodium measurement (moles/volume)2020-03-18 07:57:00* Test Item Value Reference Range Interpretation Comments Sodium Level (test code = 2951-2) 137 136-145 [facility] plasma potassium measurement (moles/volume)2020-03-18 07:57:00* Test Item Value Reference Range Interpretation Comments Potassium Level (test code = 2823-3) 4.8 3.5-5.1 [facility] or plasma chloride measurement (moles/volume)2020-03-18 07:57:00* Test Item Value Reference Range Interpretation Comments Chloride Level (test code = 2075-0) 109 98-107 [facility] or plasma carbon dioxide, total measurement (moles/volume)2020-03-18 07:57:00* Test Item Value Reference Range Interpretation Comments Carbon Dioxide Level (test code = 2028-9) 22 22-29 [facility] or plasma anion vdn5330-88-86 07:57:00* Test Item Value Reference Range Interpretation Comments Anion Gap (test code = 33950-4) 10.8 8-16 [facility] or plasma urea nitrogen measurement (mass/volume)2020-03-18 07:57:00* Test Item Value Reference Range Interpretation Comments Blood Urea Nitrogen (test code = 3094-0) 18 7-26 [facility] or plasma creatinine measurement (mass/volume)2020-03-18 07:57:00* Test Item Value Reference Range Interpretation Comments Creatinine (test code = 2160-0) 1.35 0.72-1.25 [facility] or plasma urea nitrogen/creatinine mass bgtmb3282-16-24 07:57:00* Test Item Value Reference Range Interpretation Comments BUN/Creatinine Ratio (test code = 3097-3) 13 6-25 [facility] TexasEstimated glomerular filtration rate (GFR) zhgckhuoyqmyr3804-11-38 07:57:00* Test Item Value Reference Range Interpretation Comments Estimat Glomerular Filtration Rate (test code = 718970384) 52 >60 Ranges were taken from the National Kidney Disease Education Program and the [facility] Kid[facility] Foundation literature.Reference ranges:60 or greater: Clteor17-87 ( for 3 consecutive months): Chronic kidney disease 15 or less: Kidney failureWoman's Hospital of TexasGlucose ywwchrmnkat2230-00-10 07:57:00* Test Item Value Reference Range Interpretation Comments Glucose Level (test code = OCO7503) 108 74-118 [facility] or plasma calcium measurement (mass/volume)2020-03-18 07:57:00* Test Item Value Reference Range Interpretation Comments Calcium Level (test code = 52404-3) 8.9 8.4-10.2 [facility] or plasma total bilirubin measurement (mass/volume)2020-03-18 07:57:00* Test Item Value Reference Range Interpretation Comments Total Bilirubin (test code = 1975-2) 0.3 0.2-1.2 [facility] TexasFluoroscopic procedure less than one hour rcrjjfxp2567-08-11 07:57:00* Test Item Value Reference Range Interpretation Comments Aspartate Amino Transf (AST/SGOT) (test code = Aspartate Amino Transf (AST/SGOT)) 24 5-34 [facility] or plasma alanine aminotransferase measurement (enzymatic activity/volume)2020-03-18 07:57:00* Test Item Value Reference Range Interpretation Comments Alanine Aminotransferase (ALT/SGPT) (test code = 1742-6) 24 0-55 [facility] or plasma protein measurement (mass/volume)2020-03-18 07:57:00* Test Item Value Reference Range Interpretation Comments Total Protein (test code = 2885-2) 6.8 6.5-8.1 [facility] or plasma albumin measurement (mass/volume)2020-03-18 07:57:00* Test Item Value Reference Range Interpretation Comments Albumin (test code = 1751-7) 3.6 3.5-5.0 [facility] TexasPlasma globulin measurement (mass/volume) 2020-03-18 07:57:00* Test Item Value Reference Range Interpretation Comments Globulin (test code = 68400-6) 3.2 2.3-3.5 [facility] or plasma albumin/globulin mass tymtg7498-17-44 07:57:00* Test Item Value Reference Range Interpretation Comments Albumin/Globulin Ratio (test code = 1759-0) 1.1 0.8-2.0 [facility] or plasma alkaline phosphatase measurement (enzymatic activity/volume)2020-03-18 07:57:00* Test Item Value Reference Range Interpretation Comments Alkaline Phosphatase (test code = 6768-6) 40 40-150 [facility] or plasma creatine kinase measurement (enzymatic activity/volume)2020-03-18 07:57:00* Test Item Value Reference Range Interpretation Comments Creatine Kinase (test code = 2157-6) 173 30-200 [facility] or plasma creatine kinase MB measurement (mass/volume)2020-03-18 07:57:00* Test Item Value Reference Range Interpretation Comments Creatine Kinase MB (test code = 57259-1) 2.20 0-5.0 [facility] TexasTroponin I measurement by highly sensitive enzyme wfefkerahan2868-57-90 07:57:00* Test Item Value Reference Range Interpretation Comments Troponin I (test code = 34922-4) 0.003 0-0.300 [facility] or plasma lipase measurement (enzymatic activity/volume)2020-03-18 07:57:00* Test Item Value Reference Range Interpretation Comments Lipase (test code = 3040-3) 43 8-78 [facility] Hospital of TexasKNEE RIGHT THREE HDRZI7905-56-38 11:42:00 [facility] [address] [place] [address] Patient Name: DARRELL BOTELLO MR #: [id number] : 1944 Age/Sex: 74/M Req #: [id number] Adm Physician: Ordered by: JUANITO DEE, BJORN Espinal MD Report #: [id number] Location: [facility] Room/Bed: Procedure: [id number] DX/KNEE RIGHT THREE [...] on 08/17/19 1143 COPY TO: BJORN SOLOMON US PELVIC (NON OB) SIEGEL OR F/Y7921-87-93 14:36:00 [place] [address] Patient Name: DARRELL BOTELLO MR #: [id number] : 1945 Age/Sex: 74/M Req #: [id number] Adm Physician: Ordered by: BELA SAHU MD Report #: [id number] Location: Room/Bed: Procedure: [id number] US/U S PELVIC (NON OB) SIEGEL OR F/U Exam Date: 04/07/19 Exa m Time: 1321 REPORT STATUS: Signed EXAM: Renal Ultrasound INDICATION: [id number] CHRONIC K ROBEL DZ,STAGE III COMPARISON: Renal ultrasound of 02/04/2019 [...] PM Dicta rose By: DOROTEO COLE MD 39 Transcribed By: URMILA on 04/07/191439 COPY TO: BELA SAHU MD RENAL RETROPERITONEAL VMZQ8241-45-10 14:36:00 [place] [address] Patient Name: DARRELL BOTELLO MR #: [id number] : 1945 Age/Sex: 74/M Req #: [id number] Adm Physician: Ordered by: BELA SAHU MD Report #: [id number] Location: Room/Bed: Procedure: [id number] US/U S RENAL RETROPERITONEAL COMP Exam Date: 04/07/19 Exa m Time: 1321 REPORT STATUS: Signed EXAM: Renal Ultrasound INDICATION: [id number] CHRONIC K IDNEY DZ,STAGE III COMPARISON: Renal [...] 04/07/19 1440 COPY TO: BELA SAHU MD US RENAL RETROPERITONEAL TQII5873-93-86 11:19:00 [place] [address] Patient Name: DARRELL BOTELLO MR #: [id number] : 1945 Age/Sex: 73/M Req #: [id number] Adm Physician: Ordered by: BJORN SOLOMON MD, MD Report #: [id number] Location: Room/Bed: Procedure: [id number] US/US RENAL RETROPERITONEAL [...] 1123 COPY TO: BJORN SOLOMON Vancomycin Level Kgzhlz1288-12-11 09:41:00* Test Item Value Reference Range Interpretation Comments Vancomycin Level Trough (test code = 4092-3) 15.3 5.0-10.0 HH Results called to Yong Segal RN at 0940 on 04/09/18 by Kimmy Tavares. RB [place].[facility] TexasBlood Fgeleix7392-05-60 12:17:00* Test Item Value Reference Range Interpretation Comments Blood Culture (test code = 600-7) Organism: STAPHYLOCOCCUS EPIDERMI DIS [facility] TexasBedside Mmlhepu2433-86-28 12:01:00* Test Item Value Reference Range Interpretation Comments Bedside Glucose (test code = 36524-2) 216 70-120 H Meter ID: [id number] [facility] 2018-04-07 06:14:00* Test Item Value Reference Range Interpretation Comments Sodium Level (test code = 2951-2) 138 136-145 [facility] TexasPotassium Qvfct2905-87-93 06:14:00* Test Item Value Reference Range Interpretation Comments Potassium Level (test code = 2823-3) 4.0 3.5-5.1 [facility] TexasChloride Gaied8125-92-21 06:14:00* Test Item Value Reference Range Interpretation Comments Chloride Level (test code = 2075-0) 105 98-107 [facility] TexasCarbon Dioxide Qbojw7809-19-85 06:14:00* Test Item Value Reference Range Interpretation Comments Carbon Dioxide Level (test code = 2028-9) 26 22-29 [facility] TexasAnion Jgp2981-30-20 06:14:00* Test Item Value Reference Range Interpretation Comments Anion Gap (test code = 73638-7) 11.0 8-16 [facility] TexasBlood Urea Lbhunofe0857-94-99 06:14:00* Test Item Value Reference Range Interpretation Comments Blood Urea Nitrogen (test code = 3094-0) 15 7-26 [facility] TexasCreatinine2018-08-08 06:14:00* Test Item Value Reference Range Interpretation Comments Creatinine (test code = 2160-0) 1.02 0.72-1.25 [facility] TexasBUN/Creatinine Tkmcy4223-76-35 06:14:00* Test Item Value Reference Range Interpretation Comments BUN/Creatinine Ratio (test code = 3097-3) 15 6-25 [facility] TexasEstimat Glomerular Filtration Rate 2018-04-07 06:14:00* Test Item Value Reference Range Interpretation Comments Estimat Glomerular Filtration Rate (test code = 31344-0) 60- >60 Ranges were taken from the National Kidney Disease Education Program and the [facility] Kidney Foundation literature.Reference ranges:60 or greater: Pziiad36-76 ( for 3 consecutive months): Chronic kidney disease 15 or less: Kidney failureWoman's Hospital of TexasGlucose Rxxko2804-39-40 06:14:00* Test Item Value Reference Range Interpretation Comments Glucose Level (test code = LBK8234) 98 74-118 [facility] TexasCalcium Ianan8060-89-75 06:14:00* Test Item Value Reference Range Interpretation Comments Calcium Level (test code = 19807-6) 9.0 8.4-10.2 [facility] TexasMagnesium Phegt2484-23-70 06:14:00* Test Item Value Reference Range Interpretation Comments Magnesium Level (test code = 50293-4) 1.8 1.3-2.1 [facility] TexasWhite Blood Lfjdl9120-35-11 06:05:00* Test Item Value Reference Range Interpretation Comments White Blood Count (test code = 6690-2) 5.22 4.8-10.8 [facility] of TexasRed Blood Cqhhy8903-42-82 06:05:00* Test Item Value Reference Range Interpretation Comments Red Blood Count (test code = 789-8) 4.12 4.3-5.7 L [facility] TexasHemoglobin2018-08-08 06:05:00* Test Item Value Reference Range Interpretation Comments Hemoglobin (test code = 28723-6) 12.7 14.0-18.0 L [facility] TexasHematocrit2018-08-08 06:05:00* Test Item Value Reference Range Interpretation Comments Hematocrit (test code = 4544-3) 37.7 38.2-49.6 L [facility] of TexasMean Corpuscular Togeir1859-84-80 06:05:00* Test Item Value Reference Range Interpretation Comments Mean Corpuscular Volume (test code = 787-2) 91.5 81-99 [facility] TexasMean Corpuscular Qowbgfcfmu6893-39-03 06:05:00* Test Item Value Reference Range Interpretation Comments Mean Corpuscular Hemoglobin (test code = 785-6) 30.8 28-32 [facility] Corpuscular Hemoglobin Concent 2018-04-07 06:05:00* Test Item Value Reference Range Interpretation Comments Mean Corpuscular Hemoglobin Concent (test code = 786-4) 33.7 31-35 [facility] TexasRed Cell Distribution Ohpsd0734-18-63 06:05:00* Test Item Value Reference Range Interpretation Comments Red Cell Distribution Width (test code = 06749-5) 12.9 11.7 -14.4 [facility] TexasPlatelet Trixp8410-10-14 06:05:00* Test Item Value Reference Range Interpretation Comments Platelet Count (test code = 777-3) 305 140-360 [facility]utroph[facility] (%) (Auto)2018-04-07 06:05:00 * Test Item Value Reference Range Interpretation Comments Neutrophils (%) (Auto) (test code = 87607-1) 58.0 38.7-80.0 [facility] TexasLymphocytes (%) (Auto)2018-04-07 06:05:00 * Test Item Value Reference Range Interpretation Comments Lymphocytes (%) (Auto) (test code = 736-9) 24.1 18.0-39.1 [facility]Monocytes (%) (Auto)2018-04-07 06:05:00* Test Item Value Reference Range Interpretation Comments Monocytes (%) (Auto) (test code = 5905-5) 12.5 4.4-11.3 H [facility] TexasEosinophils (%) (Auto)2018-04-07 06:05:00 * Test Item Value Reference Range Interpretation Comments Eosinophils (%) (Auto) (test code = 713-8) 4.6 0.0-6.0 [facility] TexasBasophils (%) (Auto)2018-04-07 06:05:00* Test Item Value Reference Range Interpretation Comments Basophils (%) (Auto) (test code = 706-2) 0.6 0.0-1.0 [facility] TexasIM GRANULOCYTES %2018-04-07 06:05:00* Test Item Value Reference Range Interpretation Comments IM GRANULOCYTES % (test code = IM GRANULOCYTES %) 0.2 0.0- 1.0 [facility] TexasNeutrophils # (Auto)2018-04-07 06:05:00* Test Item Value Reference Range Interpretation Comments Neutrophils # (Auto) (test code = 751-8) 3.0 2.1-6.9 [facility] TexasLymphocytes # (Auto)2018-04-07 06:05:00* Test Item Value Reference Range Interpretation Comments Lymphocytes # (Auto) (test code = 54971-7) 1.3 1.0-3.2 [facility] TexasMonocytes # (Auto)2018-04-07 06:05:00* Test Item Value Reference Range Interpretation Comments Monocytes # (Auto) (test code = 742-7) 0.7 0.2-0.8 [facility] TexasEosinophils # (Auto)2018-04-07 06:05:00* Test Item Value Reference Range Interpretation Comments Eosinophils # (Auto) (test code = 711-2) 0.2 0.0-0.4 [facility]Basophils # (Auto)2018-04-07 06:05:00* Test Item Value Reference Range Interpretation Comments Basophils # (Auto) (test code = 704-7) 0.0 0.0-0.1 [facility] TexasAbsolute Immature Granulocyte (auto 2018-04-07 06:05:00* Test Item Value Reference Range Interpretation Comments Absolute Immature Granulocyte (auto (marcella t code = Absolute Immature Granulocyte (auto) 0.01 0-0.1 [facility] TexasCHEST XRAY LINE [id number] 17:40:00 [place] [address] Patient Name: DARRELL BOTELLO MR #: [id number] : 1945 Age/Sex: 73/M Req #: [id number] Adm Physician: KIRSTEN PEÑA MD Ordered by: SEGUNDO LEMUS Report #: [id number] Location: MED/SURG3 Room/Bed: [facility] Procedure: 64 DX/CHEST XRAY LINE PLACEMENT Exam Date: Exam Jamal e: REPORT STATUS: Signed PROCEDURE: A single AP view of the chest. COMPARISON: [facility], DX, CHEST 2 VIEWS, 11/09/2017, 7:55. INDICATIONS: LINE [...] on 04/06/181739 COPY TO: SEGUNDO LEMUS Blood [id number] 19:57:00* Test Item Value Reference Range Interpretation Comments Blood Culture (test code = 79962117) Growth detected. Culture wo rkup ordered. [facility] TexasCT FOOT LEFT [id number] 11:29:00 [place] [address] Patient Name: DARRELL BOTELLO MR #: [id number] : 1945 Age/Sex: 73/M Req #: [id number] Adm Physician: Ordered by: MEGA WALTER MD Report #: [id number] Location: ER [facility]/Bed: Procedure: [id number] CT/CT FOOT LEFT W Exam Date: 04/04/18 Exam Time: 1000 REPORT STATUS: S igned CT Lower extremity left with contrast, with reconstructions. CPT c ode: 95697, 87431 Indications: Progressive swelling, top of foot. Tech [...] COPY TO: MEGA WALTER MD FOOT LEFT [id number] 10:54:00 [place] [address] Patient Name: DARRELL BOTELLO MR #: [id number] : 1945 Age/Sex: 73/M Req #: [id number] Adm Physician: Ordered by: MEGA WALTER MD Report #: [id number] Location: ER Room/Bed: Procedure: [id number] DX/FOOT LEFT COMPLETE E xam Date: 04/04/18 Exam Time: 939 REPORT STATU S: Signed Foot complete CPT code: 69978 Indication: Foot infection, top of foot Technique: [...] Bilirubin (test code = 1975-2) 0.8 0.2-1.2 [facility] TexasAspartate Amino Transf (AST/SGOT) 2018-04-04 10:27:00* Test Item Value Reference Range Interpretation Comments Aspartate Amino Transf (AST/SGOT) (test code = Aspartate Amino Transf (AST/SGOT)) 15 5-34 [facility] TexasAlanine Aminotransferase (ALT/SGPT) 2018-04-04 10:27:00* Test Item Value Reference Range Interpretation Comments Alanine Aminotransferase (ALT/SGPT) (test code = 1742-6) 15 0-55 [facility] TexasTotal [id number] 10:27:00* Test Item Value Reference Range Interpretation Comments Total Protein (test code = 2885-2) 6.6 6.5-8.1 [facility] TexasAlbumin2018-08-05 10:27:00* Test Item Value Reference Range Interpretation Comments Albumin (test code = 1751-7) 3.2 3.5-5.0 L [facility] TexasGlobulin2018-08-05 10:27:00* Test Item Value Reference Range Interpretation Comments Globulin (test code = 58577-6) 3.4 2.3-3.5 [facility] TexasAlbumin/Globulin [id number] 10:27:00 * Test Item Value Reference Range Interpretation Comments Albumin/Globulin Ratio (test code = 1759-0) 0.9 0.8-2.0 [facility] TexasAlkaline Uwjbmvytbhx8835-28-88 10:27:00* Test Item Value Reference Range Interpretation Comments Alkaline Phosphatase (test code = 6768-6) 40 40-150 [facility] TexasLactic Acid [id number] 10:22:00* Test Item Value Reference Range Interpretation Comments Lactic Acid Level (test code = Lactic Acid Level) 5.7 4.5- 19.8 [facility] TexasInfluenza Virus Types A,B Antigen 2017-08-30 14:08:00* Test Item Value Reference Range Interpretation Comments Influenza Virus Types A,B Antigen (test code = 83297-6) POSITIVE FLU A NEGATIVE H Results called to TRISTA ALVARES at 1406 on 08/30/17 by EYAD TOMLINSON. RB OK.Re suljose rafael LEFT MSG TO [facility] in infection control at 1406 on 08/30/17 by EYAD TOMLINSON.[facility] [address] [place] [address] Patient Name: DARRELL BOTELLO MR #: [id number] : 1945 Age/Sex: 72/M Req #: [id number] Adm Physician: Ordered by: JUANITO DEE, BJORN Espinal MD Report #: [id number] Location: DX Room/Bed: Procedure: [id number] DX/CHEST 2 VIEWS Exam Date: 11/09/17 Exam [...] JANES on 11/09/17838 COPY TO: BJORN STORY GI W/AIR CONTR [facility] [address] [place] [address] Patient Name: DARRELL BOTELLO MR #: [id number] : 1945 Age/Sex: 72/M Req #: [id number] Adm Physician: Ordered by: JUANITO DEE, BJORN Espinal MD Report #: [id number] Location: DX Room/Bed: Procedure: [id number] DX/UPPER GI W/AIR CONT R Exam Date: [...] COPY TO: BJORN SOLOMON CHEST 2 VIEWS [place] [address] Patient Name: DARRELL BOTELLO MR #: [id number] : 1945 Age/Sex: 72/M Req #: [id number] Adm Physician: Ordered by: ROSY PINON MD Report #: [id number] Location: ER Room/Bed: Procedure: [id number] DX/CHEST 2 VIEWS Exam Date: 08/30/17 Exam [...] ROSY PINON MD MRI SPINE LUMBAR WO [place] [address] Patient Name: DARRELL BOTELLO MR #: [id number] : 1945 Age/Sex: 72/M Re #: [id number] [facility] Physician: Ordered by: JUANITO DEE, BJORN Espinal MD Report #: [id number] Location: MRI Room/Bed: Procedure: [id number] MRI/MRI SPINE LUMBAR WO Exam Date: 07/02/17 [...] TO: BJORN SOLOMON LUMBAR, COMPLETE MIN 4VW [place] [address] Patient Name: DARRELL BOTELLO MR #: [id number] : 1945 Age/Sex: 72/M Req #: [id number] Adm Physician: Ordered by: BJORN SOLOMON MD, MD Report #: [id number] Location: [facility] Room/Bed: Procedure: [id number] DX/SP LUMBAR, COMPLET E MIN 4VW Exam [...]
[2020-06-03] MEDS ORDERED: MORPHINE SULFATE INJ 4 MG/ML INJ 1ML IV PRN (16:45)
--- NOTE | 2020-06-03 16:45 | NUR ---
1st attempt to give report
[2020-06-03] MEDS: SODIUM CHLORIDE 0.9% 1000ML 1,000 ML IV SCH (16:50)
--- NOTE | 2020-06-03 17:03 | NUR ---
RCD PATIENT FROM ER BY BED PT IS ALERT AND ORIENTED VITALS CHECKED ADMISSION ASSESSMENT AND HISTORY DONE BY USING BEET WORKER( jesus id [id number]) PT HAVE SWELLING ON LEFT HAND HE DENIED ANY PAIN ,IVPATENT AND RUNNING 100 ML ,INSTRUCTED PT REGARDING HOSPITAL POLICY AND VISITOR POLICY BED LOW AND LOCKED CALL LIGHT IN REACH ,FILLED ADMISSION CHEQE LIST
[2020-06-03 18:10] VITALS: BP 145/67
[2020-06-03 18:12] VITALS: BP 145/67
[2020-06-03 18:20] VITALS: BP 145/67
--- NOTE | 2020-06-03 18:46 | NUR ---
PT RESTING ON BED BED SIDE REPORT GIVEN TO ONCOMING NURSE
--- NOTE | 2020-06-03 19:40 | NUR ---
RECEIVED PT IN BED AOX3 ,MONEGASQUE SPEAKING .PT HAVE SWELLING ON LEFT HAND HE DENIED ANY PAIN ,IV PATENT AND RUNNING 100 ML,DENIES PAIN CALL LIGHT WITH IN REACH ,CONTINUE TO MONITOR
[2020-06-03 19:48] VITALS: BP 145/67
[2020-06-03 20:00] VITALS: BP 143/64
--- NOTE | 2020-06-03 20:48 | History and Physical ---
PRIMARY CARE DOCTOR: Dr. Johnathon Gutierres CHIEF COMPLAINT: Left hand swelling. HISTORY OF PRESENT ILLNESS: This is a 75-year-old male who reported possibly having handle, sharp broken glass about two weeks ago, this may have gone into his left hand. However, he was in his usual state of health until two days ago when he was working in the yard. He is not sure what happened and subsequently, he developed little finger swelling, redness, and also 2 small pustules. The patient also has a little bit of redness on his right hand as well. He was unsure if there was poison cat. He denies of fever or chills. No nausea, vomiting. No chest pain. No shortness of breath. No history of heart disease. No diabetes. PAST MEDICAL AND SURGICAL HISTORY: 1. Hypertension. 2. Hyperlipidemia. MEDICATIONS: Please see medication reconciliation form. ALLERGIES: NONE. SOCIAL HISTORY: Does not smoke. FAMILY HISTORY: No diabetes. REVIEW OF SYSTEMS: A 10-point review of system obtained and nothing else is significant other than what is stated in HPI. PHYSICAL EXAMINATION: VITAL SIGNS: Temperature 97.8, pulse 68, respiratory rate 18, blood pressure 145/67. GENERAL: No acute distress. SKIN: Left hand redness, especially dorsum side of the fourth finger. HEENT: Anicteric. Oropharynx is clear. LUNGS: Clear. HEART: Regular rate and rhythm. Normal S1, S2. ABDOMEN: Soft, nondistended. NEUROLOGIC: Alert and oriented x3. Cranial nerves II through XII grossly intact. PSYCHIATRIC: No hallucination. MUSCULOSKELETAL: Decreased range of motion of the left 4th finger. ASSESSMENT/PLAN: 1. Left hand cellulitis with pustules. We will put him on Zosyn. The patient also got a dose of vancomycin in the ED. We will consult hand surgeon. We will also consult Infectious Disease specialist, continue IV fluid. 2. Hypertension, stable. 3. Likely stage 3 chronic kidney disease, we will monitor. 4. GI/DVT prophylaxis. No chemical DVT prophylaxis due to possible surgery. MD SAMIRA Alvarez/HORACE /[id number] cc: Johnathon Gutierres
[2020-06-03] MEDS ORDERED: PIPER-TAZ 3.375 GM 50 ML IV SCH (21:00)
[2020-06-03] MEDS: PIPER-TAZ 3.375 GM 50 ML IV SCH (22:00)
[2020-06-04] VITALS (8 sets, daily range): BP systolic 119–154; BP diastolic 47–68
[2020-06-04] MEDS: ACETAMINOPHEN/CODEINE 300MG - 30MG TAB PO PRN (04:00)
[2020-06-04] MEDS: SODIUM CHLORIDE 0.9% 1000ML 1,000 ML IV SCH ×3 (04:02→22:23)
[2020-06-04 05:23] LABS: BASOPHILS % 0.5 % (0.0-1.0); EOSINOPHILS # (AUTO) 0.4 (0.0-0.4); EOSINOPHILS % 6.3 % (0.0-6.0); HEMATOCRIT 36.3 % (38.2-49.6); HEMOGLOBIN 11.5 g/dL (14.0-18.0); LYMPHOCYTES # (AUTO) 1.5 (1.0-3.2); LYMPHOCYTES % 27.6 % (18.0-39.1); MEAN CORPUSCULAR HEMOGLOBIN 29.5 pg (28-32); MEAN CORPUSCULAR HGB CONC 31.7 g/dL (31-35); MEAN CORPUSCULAR VOLUME 93.1 fL (81-99); MONOCYTES # (AUTO) 0.8 (0.2-0.8); MONOCYTES % 13.4 % (4.4-11.3); NEUTROPHILS # (AUTO) 2.9 (2.1-6.9); PLATELET COUNT 287 x10e3/uL (140-360); RED CELL DISTRIBUTION WIDTH 13.1 % (11.7-14.4)
--- NOTE | 2020-06-04 05:24 | NUR ---
PT C/O RT AND LEFT WRIST ,NOTIFIED DR PEÑA ,GIVEN THE ORDER FOR TYLENOL#3 MEDICATED THE PT WITH TYLENOL 3 ,PT RESTING PT NOT NPO ,CALL LIGHT WITH IN REACH ,CONTINUE TO MONITOR
[2020-06-04 05:45] LABS: ALBUMIN 2.9 g/dL (3.5-5.0); ANION GAP 8.7 mmol/L (8-16); CALCIUM 8.4 mg/dL (8.4-10.2); CREATININE, SERUM 1.24 mg/dL (0.72-1.25); POTASSIUM 4.7 mmol/L (3.5-5.1)
[2020-06-04] MEDS: PIPER-TAZ 3.375 GM 50 ML IV SCH ×4 (06:00→22:09)
--- NOTE | 2020-06-04 06:31 | NUR ---
CALLED CONSULT DR KNIGHT AND DR DEAN.DR KNIGHT CALLED BACK AND WAITING CALL FROM DR DEAN
--- NOTE | 2020-06-04 07:13 | NUR ---
BEDSIDE REPORT GIVEN TO THE ONCOMING NURSE
--- NOTE | 2020-06-04 07:15 | NUR ---
bedside shift report received from PM nurse. pt in stable condition.
--- NOTE | 2020-06-04 08:27 | NUR ---
informed by shift supervisor rn RN that Dr. Morgan has not called back regarding consult. paging Dr. Morgan again.
[2020-06-04] MEDS ORDERED: VANCOMYCIN 1GM/NS 250 ML 250 ML IV ONE (10:45)
--- NOTE | 2020-06-04 13:51 | Consultation ---
DATE OF CONSULTATION: 06/04/2020 CHIEF COMPLAINT: Left hand pain. CONSULTING PHYSICIAN: Jennifer Fregoso MD HISTORY OF PRESENT ILLNESS: Darrell Lemons is a 75-year-old male, right-hand dominant, who presents for evaluation of left hand and ring finger pain. He states that he was working with glass about two weeks ago and he had some pain in his fingers. He also recently this weekend started working with some poison cat and started to notice that the pain in his hand has gotten worse. He denies any fevers or chills. He knows pain present along the base of his right ring finger. There is no tenderness. He has noticed small pustules, which he thinks may be from poison cat, but he is not sure if there is maybe some glass in there as well. He states he feels better after being started on some antibiotics last night. REVIEW OF SYSTEMS: Negative for fevers or chills. Negative for numbness or tingling. PAST MEDICAL HISTORY: Hypertension. PAST SURGICAL HISTORY: None. SOCIAL HISTORY: Lives with . No tobacco, drug, or alcohol use. PHYSICAL EXAMINATION: Evaluation of the right upper extremity demonstrates small pustules and skin lesions present around the right middle finger MP joint along the dorsal aspect of the hand. There is full painless range of motion of the fingers and neurovascularly intact. Focused evaluation of left upper extremity demonstrates mild swelling to the left hand along the dorsal aspect of the base of the ring finger and in between the web space. There is erythema and swelling along the long P1. There is a small pustule present at the center of P1. This area is tender to palpation. No tenderness distally or proximally along the finger. He can perform range of motion with approximately dpc 2 to the hand. He is neurovascularly intact distally. There is no fluctuance appreciated. IMAGING: X-rays of the left hand demonstrate no fracture or dislocation. No foreign body visualized in the ring finger. LABORATORY STUDIES: Demonstrate a white blood cell count of 5.6. ASSESSMENT: Left hand pain and cellulitis after possible glass injury versus possible poison cat. PLAN: Discussed with the patient that at this point, he states his symptoms are improved with antibiotics. At this point, it is unclear whether he does have a foreign body versus poison cat contact and secondary cellulitis as well. I discussed with the patient that I would like him to be on antibiotics for additional 24 hours. We will leave him n.p.o. after midnight. I will see him tomorrow and if he has no improvement of his symptoms, then we will plan on performing an incision, debridement and possible foreign body excision. He expressed understanding and was in agreement with plan. Recommend strict elevation and continue antibiotics. MD SHELLY Guzman/HORACE /[id number] RICH
[2020-06-04] MEDS: HYDROCORTISONE 1% CREAM 30 GM TUBE TOP PRN (16:05)
--- NOTE | 2020-06-04 19:00 | NUR ---
Resumed care of patient. Patient awake and resting in bed, respirations even and unlabored on room air, no s/s of distress at this time. Bed locked and in lowest position, side rails upx2, alarm on, call light placed within reach. Patient instructed to call for assistance if needed, verbalized understanding. All safety measures in place.
--- NOTE | 2020-06-04 19:08 | Consultation ---
DATE OF CONSULTATION: 06/04/2020 REASON FOR CONSULTATION: Infection of the finger. HISTORY OF PRESENT ILLNESS: This patient, who is a very pleasant 75-year-old male, who has left hand pain, redness, and swelling. Apparently, he was working I believe with the glass about 2 weeks ago. He injured his finger. The patient also was working with poison cat. He has had redness and swelling of the finger going all the way to the palm of the hand. The patient is being admitted. I was asked to see him. He has already seen by Hand Surgery. PAST MEDICAL HISTORY: Hypertension. PAST SURGICAL HISTORY: Denies. ALLERGIES: NKA. SOCIAL HISTORY: There is no smoking, drug abuse, or alcohol abuse. FAMILY HISTORY: Otherwise unremarkable. LABORATORY DATA: Reviewed. His white count 5.3 and hemoglobin 11. His sodium 137, potassium 4.8, creatinine 1.54, came down to 1.24. MEDICATIONS: He is currently on Zosyn. The patient had an x-ray of the left hand that showed . PHYSICAL EXAMINATION: GENERAL: Currently alert and oriented. Does not seem to be in acute distress. VITAL SIGNS: Stable, currently afebrile. HEENT: He is not icteric. NECK: Supple. CHEST: Clear. HEART: S1 and S2. ABDOMEN: Soft. Bowel sounds present. EXTREMITIES: No edema. SKIN: No rash. The hand, there is redness, there is erythema, there is edema involving the hand. IMPRESSION: Infection of the hand getting better. Continue Zosyn. Obtain MRI. Hand Surgery is consulted. We will get MRI with and without contrast. May need surgical correction in the morning. We will follow depending on the clinical progress. MD SCOTT Lopez/HORACE /[id number]
--- NOTE | 2020-06-04 22:00 | Progress Note ---
DATE: 06/04/2020 SUBJECTIVE: Left hand pain feels better, but also he is on Tylenol No. 3. OBJECTIVE: VITAL SIGNS: Temperature 98.1, pulse 67, respiratory rate 16, and blood pressure 151/59. GENERAL: No acute distress. SKIN: Left hand redness about the same. LUNGS: Clear. HEART: Regular rate and rhythm. Normal S1 and S2. GI: Soft and nondistended. NEUROLOGIC: Alert and oriented x3. PSYCHIATRIC: No depression. LABORATORY DATA: White count 6, hemoglobin 12, and platelet count 287. Creatinine 1.24. ASSESSMENT AND PLAN: 1. Left hand cellulitis with pustules. We will continue IV antibiotic per Infectious Disease specialist. The patient has been evaluated by hand surgeon. We will also get an MRI. 2. Hypertension, acceptable. 3. Likely stage 3 chronic kidney disease. However, possibly a component of mild RILEY. 4. Gastrointestinal and deep vein thrombosis prophylaxis. No chemical DVT prophylaxis due to possible surgery. MD SAMIRA Alvarez/HORACE /[id number]
[2020-06-05] VITALS (9 sets, daily range): BP systolic 128–174; BP diastolic 54–78
[2020-06-05] MEDS: HYDROCORTISONE 1% CREAM 30 GM TUBE TOP PRN (03:16)
[2020-06-05] MEDS: PIPER-TAZ 3.375 GM 50 ML IV SCH ×3 (05:25→20:58)
--- NOTE | 2020-06-05 06:59 | NUR ---
Bedside report given to oncoming nurse. Patient awake and resting in bed, no s/s of distress at this time. All safety measures in place.
[2020-06-05] MEDS: SODIUM CHLORIDE 0.9% 1000ML 1,000 ML IV SCH ×2 (08:30→18:30)
[2020-06-05] MEDS ORDERED: GADOBENATE DIMEGLUMINE 1 ML IV ONE (10:05)
--- NOTE | 2020-06-05 11:14 | Diagnostic Imaging Report ---
MRI of the left hand with and without contrast. History: Cellulitis. Abscess. Redness and swelling of the hand. Technique: Multiplanar multisequence MRI of the left hand with and without IV contrast. 18 cc IV gadolinium contrast material was administered. Comparison: Radiographs 06/03/2020 Findings: Metallic hardware artifact over the first metacarpal. Marked abnormal soft tissue swelling/edema centered in the fourth finger and in the dorsal hand soft tissues. There is associated abnormal skin thickening and a 0.5 x 2.0 x 1.1 cm peripherally enhancing fluid collection along the ulnar palmar side of the fourth finger at the level of the proximal phalanx. This is consistent with an abscess. This is best seen on axial image 22, coronal image 12 and sagittal image 11. No underlying cortical destruction or focal bone marrow edema is seen to suggest osteomyelitis. No acute fracture, dislocation or evidence of avascular necrosis. Scattered degenerative change. No osseous erosion. No ligamentous or tendon tear. The visualized muscles are normal in size, signal intensity and morphology. The visualized neurovascular bundles are intact. Impression: Cellulitis and abscess formation along the ulnar palmar side of the fourth finger at the level of the proximal phalanx. No underlying cortical destruction or focal bone marrow edema is seen to suggest osteomyelitis. Signed by: Dr. Rafiq Lin M.D. on 06/05/2020 11:11 AM
[2020-06-05] MEDS ORDERED: PROPOFOL IV EMULSION 10 MG/ML 20 ML VIAL ONE (12:56)
[2020-06-05] MEDS ORDERED: EPHEDRINE SULFATE INJ 50 MG/ML VIAL ONE (12:56)
[2020-06-05] MEDS ORDERED: DESFLURANE 240 ML BTL INH ONE (12:56)
[2020-06-05] MEDS ORDERED: MIDAZOLAM HCL 2 MG/2 ML VIAL ONE (13:17)
[2020-06-05] MEDS ORDERED: FENTANYL CITRATE/PF 100MCG/2 ML INJ ONE (13:17)
[2020-06-05] MEDS ORDERED: BUPIVACAINE HCL 0.5% INJ 30 ML VIAL INJ ONE (14:31)
[2020-06-05] MEDS ORDERED: LIDOCAINE HCL 1% LOCAL INJ 20 ML VIAL ONE (14:31)
--- NOTE | 2020-06-05 15:20 | NUR ---
INFECTIOUS DISEASE PROGRESS NOTE DR. DEEPALI DEAN CC: infected left hand ROS: + pain to left hand ALL 14 POINT ROS NEG UNLESS OTHERWISE NOTED LABS: reviewed DIAGNOSTICS: reviewed PHYSICAL EXAM GENERAL: Currently alert and oriented. Does not seem to be in acute distress. VITAL SIGNS: Stable, currently afebrile. HEENT: He is not icteric. NECK: Supple. CHEST: Clear. HEART: S1 and S2. ABDOMEN: Soft. Bowel sounds present. EXTREMITIES: No edema. SKIN: No rash. The hand, there is redness, there is erythema, there is edema involving the hand. IMPRESSION: Infected Left Hand with possible foreign body Cellulitis of left hand RILEY on CKD HTN PLAN: IV ABT for now surgical reqs per hand surgeon supportive care DISCUSSED WITH DR. DIANNE Young MSN, [employer]ICAL [employer]IDES TEACHER, [facility]- Deepali Dean M.D.
--- NOTE | 2020-06-05 15:38 | NUR ---
REPORT RECEIVED FROM REAL ESTATE ACCOUNT EXECUTIVE; PT COMING BACK TO ROOM 210. PT HAD EXTENSIVE I&D OF LEFT RING FINGER. DIGITAL BLOCK PLACED WITH LIDOCAINE. QUARTER INCH PACKING AND TEN DRAIN IN PLACE. PT IN STABLE CONDITION.
--- NOTE | 2020-06-05 16:49 | Progress Note ---
DATE: 06/05/2020 CHIEF COMPLAINT: Left hand pain. HISTORY OF PRESENT ILLNESS: Darrell Lemons is a 75-year-old male with a 2-week history of left ring finger pain. He was admitted the other day and started on antibiotic. He states that he does feel better, but continues to have pain present over the volar aspect just proximal to the left ring finger. REVIEW OF SYSTEMS: Negative for fever or chills. PHYSICAL EXAMINATION: Evaluation of left upper extremity demonstrates erythema although improved, still present along the base of the ring finger on the volar aspect. There is soft fluctuance present over the proximal phalanx with some induration along the radial aspect and into the webspace. Neurovascularly intact distally. No tenderness over the flexor tendon sheath. IMAGING: MRI of the left hand demonstrates an abscess present on the volar aspect of the proximal phalanx of the ring finger. No abdominal flexor tendon sheath. Osteomyelitis. ASSESSMENT: Left ring finger abscess. PLAN: Discussed with the patient that at this point he is improving with antibiotics, so he does have demonstration of an abscess. He would benefit from incision debridement. Risks and benefits of the procedure were discussed with the patient with the use of an design draftsman. We will perform this today. Plan for antibiotics afterwards as per the instructions of infectious Disease. We will have him start doing soaks with hydrogen peroxide, 50% hydrogen peroxide and 50% saline. Start postoperative day 1. He will continue this for 10 minute twice a day throughout his discharge. We will see him back in clinic in approximately 1 week postop for wound check. We will continue to follow. MD SHELLY Guzman/MODL /[id number]
[2020-06-05] MEDS ORDERED: ONDANSETRON HCL 4 MG ORAL DISINTEGRATING TAB PO PRN (17:15)
--- NOTE | 2020-06-05 19:00 | NUR ---
Resumed care of patient. Patient awake and resting in bed, no s/s of distress at this time. Dressing to left hand CDI. All safety measures in place.
--- NOTE | 2020-06-05 19:14 | Operative Report ---
DATE OF PROCEDURE: 06/05/2020 SURGEON: Jennifer Fregoso MD PREPROCEDURE DIAGNOSIS: Left ring finger abscess. POSTPROCEDURE DIAGNOSIS: Left ring finger abscess. PROCEDURE PERFORMED: Incision and debridement, left ring finger, peripheral nerve block. ENVIRONMENTAL SERVICES LEAD: None. ANESTHESIA: General. COMPLICATIONS: None. SPECIMENS: Left ring finger cultures. ESTIMATED BLOOD LOSS: Minimal. INDICATIONS FOR PROCEDURE: Darrell Lemons is a 75-year-old male with a 2-week history of left ring finger pain as well as an MRI demonstrating abscess present over the volar aspect of the proximal phalanx of the ring finger. He had no improvement after IV antibiotics. Benefits and risks of surgery discussed with the patient including infection, damage to vascular structures, need for additional surgery, persistent pain, stiffness, and possible loss of life, or limb and knowing that he elects to proceed. DESCRIPTION OF PROCEDURE: The patient was identified in the preoperative holding area, the above-noted site was marked. He was then transferred to the operating room, where the above-noted anesthesia was induced. He was placed supine on the table with the left upper extremity on to the hand table. A peripheral nerve block was performed to left ring digit using 1% lidocaine and 0.5% Marcaine. He was then prepped and draped in usual sterile fashion. Preoperative antibiotics were held until cultures. Left upper extremity was then held after gravity exsanguination, then tourniquet was raised to 250 mmHg. An oblique incision was made centered over the volar aspect of the proximal phalanx, where there was noted to be a small pustule/puncture wound present over the midportion, this is incised through skin and purulence was then encountered, this was then sent for culture. Preoperative antibiotics were given. The neurovascular bundles along the ulnar and radial margins were then identified and bluntly retracted. There was noted to be moderate purulent discharge, which was evacuated and gentle debridement was done and all devitalized appearing tissue was excised. There was noted to be no involvement into the flexor tendon sheath. Wound was then copiously irrigated. There was noted to be some dorsal radial erythema and induration. From the volar incision, blunt dissection was then performed to ensure that we had adequate decompression along the radial margin of the left ring finger, and there was noted to be no purulence of the reports. At this point, we were then satisfied with the incision and debridement. Wound was copiously irrigated again. A Lori drain was placed into the wound and wound was partially closed with 4-0 nylon sutures. Soft sterile dressing was then placed by release of the tourniquet, the fingers pinked up nicely. The patient was then awoken from anesthesia and taken to PACU in stable condition. POSTOPERATIVE PLAN: The patient was brought back to his room. He will continue antibiotics recommended by infectious Disease. We will see him back in clinic in 1 week for wound check. While he is in-house he will start soaks with hydrogen peroxide and 50% saline twice a day for 10 minutes each time until he returns to see me back in clinic. We will plan to pull his Lori drain likely at that time. We will continue to follow. MD SHELLY Guzman/MODL /[id number]
[2020-06-05] MEDS ORDERED: CLONIDINE HCL 0.1 MG TAB PO PRN (21:00)
[2020-06-05] MEDS: ACETAMINOPHEN/CODEINE 300MG - 30MG TAB PO PRN (21:08)
--- NOTE | 2020-06-05 21:55 | Progress Note ---
DATE: 06/05/2020 SUBJECTIVE: The patient was seen in the recovery room. He a just had I and D of his left ring finger. The patient is a little drowsy, but no component. OBJECTIVE: VITAL SIGNS: Temperature 97.7, pulse 74, respiratory rate 18, and blood pressure 158/61. GENERAL: No acute distress. SKIN: Left hand packed at this time. LUNGS: Clear. HEART: Regular rate and rhythm. Normal S1 and S2. GI: Abdomen is soft and nondistended. NEUROLOGIC: Still sedated. PSYCHIATRIC: No hallucination. LABORATORY DATA: No new labs. ASSESSMENT AND PLAN: 1. Left ring finger abscess. Postop day #0. I and D by hand surgeon. We will continue IV antibiotic per Infectious Disease specialist. 2. Hypertension, acceptable at this time for monitor. We will use clonidine as needed. 3. Likely stage 3 chronic kidney disease. We will repeat a creatinine in the morning. 4. GI and DVT prophylaxis. No chemical DVT prophylaxis due to recent surgery. MD SAMIRA Alvarez/HORACE /[id number]
[2020-06-06] VITALS (8 sets, daily range): BP systolic 135–153; BP diastolic 56–70
[2020-06-06] MEDS: HYDROCORTISONE 1% CREAM 30 GM TUBE TOP PRN (01:24)
[2020-06-06] MEDS: PIPER-TAZ 3.375 GM 50 ML IV SCH ×2 (05:06→14:00)
[2020-06-06 06:16] LABS: BASOPHILS % 0.5 % (0.0-1.0); EOSINOPHILS # (AUTO) 0.3 (0.0-0.4); EOSINOPHILS % 4.4 % (0.0-6.0); HEMATOCRIT 35.4 % (38.2-49.6); HEMOGLOBIN 12.3 g/dL (14.0-18.0); LYMPHOCYTES # (AUTO) 1.5 (1.0-3.2); LYMPHOCYTES % 24.5 % (18.0-39.1); MEAN CORPUSCULAR HEMOGLOBIN 32.8 pg (28-32); MEAN CORPUSCULAR HGB CONC 34.7 g/dL (31-35); MEAN CORPUSCULAR VOLUME 94.4 fL (81-99); MONOCYTES # (AUTO) 0.8 (0.2-0.8); MONOCYTES % 12.7 % (4.4-11.3); NEUTROPHILS # (AUTO) 3.4 (2.1-6.9); NEUTROPHILS % 57.6 % (38.7-80.0); PLATELET COUNT 249 x10e3/uL (140-360); RED BLOOD COUNT 3.75 x10e6/uL (4.3-5.7); RED CELL DISTRIBUTION WIDTH 13.6 % (11.7-14.4)
[2020-06-06 06:31] LABS: ANION GAP 13.2 mmol/L (8-16); BLOOD UREA NITROGEN 14 mg/dL (7-26); BUN/CREATININE RATIO 13 (6-25); CALCIUM 8.9 mg/dL (8.4-10.2); CARBON DIOXIDE 21 mmol/L (22-29); CHLORIDE 109 mmol/L (98-107); CREATININE, SERUM 1.11 mg/dL (0.72-1.25); EST GLOMERULAR FILTRATION RATE > 60 ML/MIN (60-); GLUCOSE 89 mg/dL (74-118); POTASSIUM 4.2 mmol/L (3.5-5.1); SODIUM 139 mmol/L (136-145)
--- NOTE | 2020-06-06 07:00 | NUR ---
RCD PT AT BED PT IS ALERT AND ORIENTED RESTING ON BED IV PATENT BY SALINE FLUSH BED LOW AND LOCKED CALL LIGHT IN REACH
--- NOTE | 2020-06-06 07:00 | NUR ---
Bedside report given to oncoming nurse. Patient in stable condition, no s/s of distress at this time. All safety measures in place.
--- NOTE | 2020-06-06 09:32 | Progress Note ---
DATE: 06/06/2020 CHIEF COMPLAINT: Left hand pain. HISTORY OF PRESENT ILLNESS: Darrell Lemons is a 75-year-old male, postop day 1, after revision debridement of left ring finger volar abscess. He is doing well postoperatively. He says he has no pain. Wants to go home. REVIEW OF SYSTEMS: Negative for fever or chills. PHYSICAL EXAMINATION: EXTREMITIES: Focused evaluation of left upper extremity demonstrates dressing removed. Improved erythema along the volar aspect of the ring finger. There is still mild induration present along the left web space of the ring finger with very mild tenderness to palpation. Mild tenderness to palpation only over the incisional site. There is no fluctuance appreciated. There is Lori drains remained in place. No tenderness along the remainder of the flexor tendon sheath both distally and proximally. No pain with gentle range of motion of the fingers. Fingers are well perfused. Sensation intact to light touch. LABORATORY STUDIES: Demonstrate white blood cell count of 5.92. Cultures pending. ASSESSMENT: Doing well postoperative day 1, status post left ring finger incision and drainage. PLAN: Doing well postoperatively. We will have patient start doing soaks with 50% hydrogen peroxide, today. He used to use this for 10 minutes for twice a day until he sees me back in clinic. [place] drain is to remain in place until he sees me back in clinic. We will call for followup. Okay to discharge when appropriate per Dr. Rodrigues. We will continue to follow up here. MD SHELLY Guzman/HORACE /[id number]
[2020-06-06] MEDS ORDERED: SODIUM CHLORIDE 0.9% 1000ML 1,000 ML IV SCH (09:45)
[2020-06-06] MEDS ORDERED: HYDROGEN PEROXIDE 120 ML BTL TOP SCH (09:50)
--- NOTE | 2020-06-06 10:08 | NUR ---
WOUND SOAK GIVEN WITH SALINE AND HYDROGEN PEROXIDE AND PEN DEISI DRAINAGE OUT PAGED TO DR NIETO TO NOTIFY THAT
[2020-06-06] MEDS: LISINOPRIL 10 MG TAB PO SCH (10:15)
--- NOTE | 2020-06-06 10:15 | NUR ---
dr peralta returned the call she said its ok to came out the drain
[2020-06-06] MEDS: VANCOMYCIN 1GM/NS 250 ML 250 ML IV SCH (15:53)
--- NOTE | 2020-06-06 16:37 | NUR ---
INFECTIOUS DISEASE PROGRESS NOTE DR. DEEPALI DEAN CC: infected left hand ROS: + pain to left hand ALL 14 POINT ROS NEG UNLESS OTHERWISE NOTED LABS: reviewed DIAGNOSTICS: reviewed PHYSICAL EXAM GENERAL: Currently alert and oriented. Does not seem to be in acute distress. VITAL SIGNS: Stable, currently afebrile. HEENT: He is not icteric. NECK: Supple. CHEST: Clear. HEART: S1 and S2. ABDOMEN: Soft. Bowel sounds present. EXTREMITIES: No edema. SKIN: No rash. The hand, there is redness, there is erythema, there is edema involving the hand. IMPRESSION: Infected Left Hand with possible foreign body Cellulitis of left hand RILEY on CKD HTN PLAN: IV ABT for now -cultures back, will do IV ABT Recommend PICC line and 4 weeks of IV (final reqs pending bacteria) -weekly cbc, cmp, esr, crp surgical reqs per hand surgeon supportive care DISCUSSED WITH DR. DIANNE Young MSN, CONTENT ANALYST, AGACNP-BC Deepali Dean M.D.
--- NOTE | 2020-06-06 18:44 | NUR ---
PT RESTING ON BED BED SIDE REPORT GIVEN TO ONCOMING NURSE
--- NOTE | 2020-06-06 19:47 | Diagnostic Imaging Report ---
EXAMINATION: CHEST XRAY LINE PLACEMENT INDICATION: Right PICC placement. COMPARISON: Multiple prior chest radiograph including most sent on 06/03/2020. FINDINGS: TUBES and LINES: Right PICC which terminates in the distal SVC. LUNGS: Normal lung volumes. Lungs are clear. No consolidations. PLEURA: No pleural effusion or pneumothorax. HEART AND MEDIASTINUM: The cardiomediastinal silhouette is unremarkable. BONES AND SOFT TISSUES: No acute osseous lesion. Soft tissues are unremarkable. UPPER ABDOMEN: No free air under the diaphragm. IMPRESSION: 1. Right PICC which terminates in the distal SVC. 2. No acute thoracic radiographic abnormality. Signed by: Agapito Morley MD on 06/06/2020 7:44 PM
--- NOTE | 2020-06-06 21:55 | Progress Note ---
DATE: 06/06/2020 SUBJECTIVE: Left hand feels better after surgery yesterday. OBJECTIVE: VITAL SIGNS: Temperature 98.4, pulse 69, respiratory rate 20, and blood pressure 139/69. GENERAL: No acute distress. SKIN: No rash. LUNGS: Clear. HEART: Regular rate and rhythm. Normal S1 and S2. GI: Abdomen is soft and nondistended. NEUROLOGIC: Alert and oriented x3. PSYCHIATRIC: No hallucination. LABORATORY DATA: White count 6, hemoglobin 12, and platelet count 249. Creatinine 1.1. Wound culture from surgical I and D so far is growing Staph aureus. No sensitivity yet. ASSESSMENT AND PLAN: 1. Staph aureus, left finger abscess, postop day #1 for I and D with hand surgeon. Discussed with ID, infectious Disease. We will switch his IV antibiotic from Zosyn to IV vancomycin. We will place a PICC line. The patient will need to go home on home IV antibiotics. We will follow up on the final wound culture results. 2. Hypertension. Since his creatinine is better now, we will restart his home lisinopril. 3. Mild acute kidney injury. Again, creatinine has come down. 4. Gastrointestinal and deep venous thrombosis prophylaxis. No chemical deep venous thrombosis prophylaxis due to recent surgery. MD SAMIRA Alvarez/HORACE /[id number]
[2020-06-07] VITALS (8 sets, daily range): BP systolic 130–145; BP diastolic 49–63
--- NOTE | 2020-06-07 07:00 | NUR ---
RCD PT AT BED PT IS ALERT AND ORIENTED RESTING ON BED PT C/O SEVERE PAIN ON PICC LINE SITE BY SALINE FLUSH BED LOW AND LOCKED CALL LIGHT IN REACH
[2020-06-07] MEDS: LISINOPRIL 10 MG TAB PO SCH (09:00)
--- NOTE | 2020-06-07 09:39 | Progress Note ---
DATE: 06/07/2020 ADDITIONAL ATTENDING PHYSICIAN: Jennifer Fregoso M.D. CHIEF COMPLAINT: Left hand pain. HISTORY OF PRESENT ILLNESS: Darrell Lemons is a 75-year-old man, postop day #1 after debridement of left ring finger volar abscess. On postop day #2, he is doing well postoperatively. He states that his pain is almost completely gone in his finger. He wants to go home. REVIEW OF SYSTEMS: Negative for fever or chills. PHYSICAL EXAMINATION: Focused evaluation of left upper extremity demonstrates much improved erythema along the volar aspect of the ring finger. Induration in the left base of the ring finger improved with very minimal tenderness to palpation. There is no induration appreciated. No fluctuance. He is able to make a good without significant pain. Fingers are warm, well perfused. Sensation is intact to light touch. No tenderness along the flexor tendon sheath distally and proximally. LABORATORY STUDIES: Demonstrated Staph aureus pansensitive. ASSESSMENT: Postop day #2 status post left ring finger volar abscess incision and drainage. PLAN: Doing well postoperatively. Discussed with the patient to continue working on range of motion as well as continue doing his hydrogen peroxide soaks until he sees me back in the office in one week. We will contact him to arrange followup. MD SHELLY Guzman/CLIFTONL /[id number]
[2020-06-07 10:34] LABS: BASOPHILS % 0.6 % (0.0-1.0); EOSINOPHILS # (AUTO) 0.2 (0.0-0.4); EOSINOPHILS % 3.9 % (0.0-6.0); HEMATOCRIT 40.6 % (38.2-49.6); HEMOGLOBIN 13.3 g/dL (14.0-18.0); LYMPHOCYTES # (AUTO) 1.4 (1.0-3.2); LYMPHOCYTES % 27.8 % (18.0-39.1); MEAN CORPUSCULAR HGB CONC 32.8 g/dL (31-35); MEAN CORPUSCULAR VOLUME 91.6 fL (81-99); MONOCYTES # (AUTO) 0.7 (0.2-0.8); MONOCYTES % 13.7 % (4.4-11.3); NEUTROPHILS # (AUTO) 2.8 (2.1-6.9); NEUTROPHILS % 53.8 % (38.7-80.0); PLATELET COUNT 326 x10e3/uL (140-360); RED BLOOD COUNT 4.43 x10e6/uL (4.3-5.7); RED CELL DISTRIBUTION WIDTH 12.6 % (11.7-14.4)
[2020-06-07 11:04] LABS: ANION GAP 13.1 mmol/L (8-16); BLOOD UREA NITROGEN 16 mg/dL (7-26); BUN/CREATININE RATIO 14 (6-25); CALCIUM 9.8 mg/dL (8.4-10.2); CARBON DIOXIDE 23 mmol/L (22-29); CHLORIDE 105 mmol/L (98-107); CREATININE, SERUM 1.16 mg/dL (0.72-1.25); EST GLOMERULAR FILTRATION RATE > 60 ML/MIN (60-); GLUCOSE 107 mg/dL (74-118); POTASSIUM 4.1 mmol/L (3.5-5.1); SODIUM 137 mmol/L (136-145)
[2020-06-07] MEDS: VANCOMYCIN 1GM/NS 250 ML 250 ML IV SCH (16:00)
--- NOTE | 2020-06-07 18:39 | NUR ---
PT RESTING ON BED BED SIDE REPORT GIVEN TO ONCOMING NURSE
--- NOTE | 2020-06-07 19:30 | NUR ---
Received pt laying in bed, awake and alert. No c/o at this time, no s/sx of acute distress noted. Pt bed low and locked, personal items within reach. Bedside report completed. Will cont to mon pt.
--- NOTE | 2020-06-07 19:48 | Progress Note ---
DATE: 06/07/2020 SUBJECTIVE: No new complaints. OBJECTIVE: VITAL SIGNS: Temperature 98.7, pulse 68, respiratory rate 18, and blood pressure 145/63. GENERAL: No acute distress. SKIN: No rash. LUNGS: Clear. HEART: Regular rate and rhythm. Normal S1, S2. GI: Abdomen is soft, nondistended. NEUROLOGIC: Alert and oriented x3. PSYCHIATRIC: No hallucination. LABORATORY DATA: White count 5, hemoglobin 13, and platelet count 326. Creatinine 1.16. Wound culture is pansensitive Staph aureus. ASSESSMENT AND PLAN: 1. Methicillin-susceptible Staphylococcus aureus left finger abscess. Postop day #2. Incision and drainage with hand surgeon. PICC line was placed last night. This morning, he has some discomfort. Venous Doppler was done, which was negative for deep venous thrombosis. Currently, the patient is not complaining of discomfort anymore. Discussed with Infectious Disease. He will re-evaluate to determine whether the patient will still need home IV antibiotics in light of his culture results. 2. Hypertension, acceptable. Continue lisinopril. 3. Mild acute kidney injury, resolved. 4. Gastrointestinal and deep venous thrombosis prophylaxis. No chemical deep venous thrombosis prophylaxis due to recent surgery. MD SAMIRA Alvarez/HORACE /[id number]
[2020-06-07] MEDS: CEFAZOLIN SOD 1 GM/NS 50ML 50 ML IV SCH (20:05)
--- NOTE | 2020-06-07 20:18 | Progress Note ---
DATE: 06/07/2020 SUBJECTIVE: Mr. Cristo Ramírez is feeling better. The finger seems to be getting better. It is less erythematous and less edematous. He grew MSSA. PHYSICAL EXAMINATION: GENERAL: He is currently alert, oriented. VITAL SIGNS: Stable, currently afebrile. HEENT: He is not icteric. NECK: Supple. CHEST: Clear bilateral. HEART: S1, S2. ABDOMEN: Soft. Bowel sounds present. EXTREMITIES: His left ring finger is less erythematous and less edematous. This seems to be better. IMPRESSION: Methicillin-sensitive Staphylococcus aureus infection status post left ring finger volar abscess, status post debridement. Agree with discharge home. Discussed with the patient. We will discharge home with oral. He does not do IV antibiotic, it was too hard on him last time. Today, I can see improvement. We will change to Ancef 2 g daily. We will discharge home tomorrow with Keflex 500 mg p.o. t.i.d. for 2 weeks. MD SCOTT Lopez/HORACE /[id number]
[2020-06-08 01:00] VITALS: BP 113/54
[2020-06-08] MEDS: CEFAZOLIN SOD 1 GM/NS 50ML 50 ML IV SCH ×2 (04:15→12:00)
[2020-06-08 05:57] VITALS: BP 126/58
[2020-06-08 09:00] VITALS: BP 134/59
[2020-06-08 09:28] VITALS: BP 134/59
[2020-06-08] MEDS: LISINOPRIL 10 MG TAB PO SCH (09:30)
--- NOTE | 2020-06-08 12:40 | NUR ---
Right upper arm PICC line removed as ordered. Noted 36 cm catheter tip intact, pressure applied, occlusive dressing applied. No bleeding noted. Patient is advised to remove the dressing after 24 hours.
[2020-06-08] MEDS ORDERED: KEFLEX500 MG PO (12:49)
--- NOTE | 2020-06-08 14:00 | NUR ---
PATIENT DISCHARGED HOME VIA PRIVATE VEHICLE. PICC LINE REMOVED PRIOR TO DISCHARGE. SEE NOTES. PATIENT RECEIVED DISCHARGE INSTRUCTIONS, WRITTEN PRESCRIPTIONS, WOUND CARE INSTRUCTIONS, AND EDUCATION SHEETS. PATIENT VERBALIZED UNDERSTANDING.
--- NOTE | 2020-06-08 20:34 | Discharge Summary ---
PRIMARY CARE DOCTOR: Dr. Johnathon Gutierres. FINAL DIAGNOSIS: Left ring finger methicillin-susceptible Staphylococcus aureus abscesses with cellulitis. SECONDARY DIAGNOSES: 1. Hypertension. 2. Mild acute kidney injury, resolved. CONSULTANTS: 1. Dr. Fregoso, hand surgeon. 2. Dr. Morgan, Infectious Disease. PROCEDURES/STUDIES PERFORMED: 1. MRI of the hand. 2. PICC line placement. 3. Upper extremity venous Doppler which was negative for blood clot. HISTORY: Per dictated H and P. HOSPITAL COURSE: The patient was admitted. The patient initially was started on Zosyn. Subsequently, MRI shows an abscess. Therefore, patient was taken to the OR for I and D, today is postop day #3, initially intraoperative wound culture came back as Staph aureus. Zosyn was switched to IV vancomycin. PICC line was placed for possible home IV antibiotics per Infectious Disease. Subsequently, wound culture came back methicillin-susceptible Staph aureus. IV vancomycin was switched to Ancef. His wound continued to improve. PICC line was removed. The patient was sent home on Keflex for three more weeks. The patient was told to soak his hand twice a day for 10 minutes each time with 50% half hydrogen peroxide and half saline until he follows up with Dr. Fregoso in one week. The patient was seen and examined today. It took 31 minutes total to discharge this patient. CONDITION ON DISCHARGE: Improved. DISCHARGE MEDICATION: Please see medication reconciliation form. YiMD SAMIRA Velásquez/HORACE /[id number] cc: Johnathon Gutierres
== END 2020-06-08 14:00 | disposition home or self-care (01) | DRG 580 ==
LOC: ER 14:10 → ERHOLD 16:24 → MED/SURG2 17:03
PROVIDERS: ADMIT Internal Medicine; ATTEND Internal Medicine
PROC: 0J9K0ZZ Drainage of Left Hand Subcutaneous Tissue and Fascia, Open Approach (ICD-10-PCS; 2020-06-05)
PROC: 0JBK0ZZ Excision of Left Hand Subcutaneous Tissue and Fascia, Open Approach (ICD-10-PCS; 2020-06-05)
PROC: 02HV33Z Insertion of Infusion Device into Superior Vena Cava, Percutaneous Approach (ICD-10-PCS; principal; 2020-06-06)
PROC: B548ZZA Ultrasonography of Superior Vena Cava, Guidance (ICD-10-PCS; 2020-06-06)
DX: L03.114 Cellulitis of left upper limb (principal); L02.512 Cutaneous abscess of left hand; N17.9 Acute kidney failure, unspecified; I12.9 Hypertensive chronic kidney disease with stage 1 through stage 4 chronic kidney disease, or unspecified chronic kidney disease; N18.30 Chronic kidney disease, stage 3 unspecified; E78.5 Hyperlipidemia, unspecified; B95.61 Methicillin susceptible Staphylococcus aureus infection as the cause of diseases classified elsewhere; Z11.59 Encounter for screening for other viral diseases
CPT/HCPCS: 36415; 36569; 71045; 80048; 80053; 82948; 85025; 85610; 85730; 87040; 87071; 87075; 87186; 87205; 93930; 93970; 99284; J0690; J2001; J2250; J2543; J3010; J3370; J7030

== ENCOUNTER → 2021-04-12 | Outpatient (CLI) | payer MEDICARE ==
[~2021-04-12] MED LIST changes: +KEFLEX500 MG PO
== END ==
LOC: RAD 12:42
PROVIDERS: ATTEND Family Medicine
DX: M25.511 Pain in right shoulder (principal)

== ENCOUNTER → 2021-06-04 | Day surgery (SDC) | payer MEDICARE ==
[2021-06-03 11:49] LABS: BASOPHILS % 0.5 % (0.0-1.0); EOSINOPHILS # (AUTO) 0.2 (0.0-0.4); EOSINOPHILS % 3.5 % (0.0-6.0); LYMPHOCYTES # (AUTO) 1.7 (1.0-3.2); LYMPHOCYTES % 29.9 % (18.0-39.1); MEAN CORPUSCULAR HEMOGLOBIN 30.9 pg (28-32); MEAN CORPUSCULAR HGB CONC 31.7 g/dL (31-35); MEAN CORPUSCULAR VOLUME 97.4 fL (81-99); MONOCYTES # (AUTO) 0.8 (0.2-0.8); MONOCYTES % 13.2 % (4.4-11.3); NEUTROPHILS % 52.7 % (38.7-80.0); PLATELET COUNT 277 x10e3/uL (140-360); RED BLOOD COUNT 4.21 x10e6/uL (4.3-5.7); RED CELL DISTRIBUTION WIDTH 13.6 % (11.7-14.4)
[~2021-06-04] MED LIST changes: +CRESTOR10 MG PO; +EPINEPHRINE 1 MG/ML 30ML VIAL ONE; +FENTANYL CITRATE/PF 100MCG/2 ML INJ ONE; +ROPIVACAINE 0.5% 5 MG/ML 30 ML SDV ONE
[2021-06-04 14:10] VITALS: BP 122/50
== END | disposition home or self-care (01) ==
LOC: OR 08:30
PROVIDERS: ATTEND Specialist
DX: S46.011A Strain of muscle(s) and tendon(s) of the rotator cuff of right shoulder, initial encounter (principal); M19.90 Unspecified osteoarthritis, unspecified site; I10 Essential (primary) hypertension; E78.5 Hyperlipidemia, unspecified; K57.90 Diverticulosis of intestine, part unspecified, without perforation or abscess without bleeding; X50.0XXA Overexertion from strenuous movement or load, initial encounter; Z01.810 Encounter for preprocedural cardiovascular examination; Z01.812 Encounter for preprocedural laboratory examination; Z01.818 Encounter for other preprocedural examination; Z20.822 Contact with and (suspected) exposure to COVID-19; Z68.30 Body mass index [BMI] 30.0-30.9, adult
CPT/HCPCS: 29824; 29827; 36415; 71046; 85025; 93005; C1713 ×3; J0690; J2795; J3010; U0002

== ENCOUNTER → 2024-07-04 | Outpatient (REF) | payer MEDICARE ==
[~2024-07-04] MED LIST changes: -EPINEPHRINE 1 MG/ML 30ML VIAL ONE; -FENTANYL CITRATE/PF 100MCG/2 ML INJ ONE; -ROPIVACAINE 0.5% 5 MG/ML 30 ML SDV ONE
== END ==
LOC: RAD 14:12
PROVIDERS: ATTEND Internal Medicine
DX: M19.042 Primary osteoarthritis, left hand (principal); M19.041 Primary osteoarthritis, right hand

== ENCOUNTER → 2024-08-02 | Outpatient (REF) | payer MEDICARE, OTHER | LOC: RAD 10:27 | PROVIDERS: ATTEND Internal Medicine Rheumatology | DX: M25.561 Pain in right knee (principal); M13.861 Other specified arthritis, right knee ==